=== PATIENT | male | born 1975 | race Caucasian/White ===

== ENCOUNTER 2016-09-21 21:22 | Emergency (ER) | payer OTHER ==
[~2016-09-21] VITALS: Ht 188 cm; Wt 115.6 kg
[~2016-09-21 21:22] MED LIST: ADDE20XR PO; ALPR.25 PO; OXYC1SOL5 PO
[2016-09-21 21:29] VITALS: BP 157/113; PULSE 72; RESP 18; TEMP 98.7; O2SAT 97
[2016-09-21] MEDS ORDERED: SODIUM CHLORIDE 0.9% FLUSH 5 ML FLUSH IVF PRN (21:45)
[2016-09-21] MEDS ORDERED: ASPIRIN 325 MG TAB PO ONE (21:45)
--- NOTE | 2016-09-21 21:49 | PD ---
HPI Chief Complaint: Chest Pain Time Seen by Provider: 21:33 Travel History International Travel<30 days: No Contact w/Intl Traveler<30days: No Traveled to known affect area: No History of Present Illness HPI 40yo M with PMH of anxiety presents to the ED with chest pain for 2 days. Pain is midsternal, and started more epigastric. +SOB. Denies any fever, cough, n/v , abdominal pain, focal weakness or numbness. Pt went to his PMD today and given ranitidine and states it didnt help. Former smoker. No other risk factors. PFSH Past Medical History Cancer: No Cardiovascular Problems: No Diminished Hearing: No Diverticulitis: Yes Endocrine: No Genitourinary: No Immune Disorder: No Musculoskeletal: No Neurologic: No Psychiatric: No Reproductive: No Respiratory: No Past Surgical History Abdominal Surgery: Yes (FISTULA REPAIR) AICD: No Arteriovenous Shunt: No Cardiac Surgery: No Ear Surgery: No Endocrine Surgery: No Eye Surgery: No Genitourinary Surgery: No Gynecologic Surgery: No Insulin Pump: No Joint Replacement: No Oral Surgery: Yes (WISDOM TEETH) Pacemaker: No Thoracic Surgery: No Other Surgery: Yes (FISTULA REPAIR, WISDOM TEETH) Social History Alcohol Use: Yes (RARELY) Tobacco Use: Yes (OCC) Substance Use: Yes (MARIJUANA) Allergies-Medications (Allergen,Severity, Reaction): Coded Allergies: No Known Allergies (Unverified , 09/21/16) Reported Meds & Prescriptions Reported Meds & Active Scripts Active Reported Oxycodone (Oxycodone HCl) 5 Mg Cap 5 Mg PO Q6H PRN Xanax (Alprazolam) 0.5 Mg Tab 0.5 Mg PO Q12HR PRN Adderall Xr 24 HR (Amphetamine/Dextroamphetamine) 20 Mg Cap 20 Mg PO DAILY Once daily in the morning. Review of Systems Except as stated in HPI: all other systems reviewed are Neg Physical Exam Narrative GENERAL: 40yo M not in distress. SKIN: Warm and dry. HEAD: Atraumatic. Normocephalic. EYES: Pupils equal and round. No scleral icterus. No injection or drainage. ENT: No nasal bleeding or discharge. Mucous membranes pink and moist. NECK: Trachea midline. No JVD. CARDIOVASCULAR: Regular rate and rhythm. No murmur appreciated. RESPIRATORY: No accessory muscle use. Clear to auscultation. Breath sounds equal bilaterally. GASTROINTESTINAL: Abdomen soft, non-tender, nondistended. No rebound tenderness or guarding. MUSCULOSKELETAL: +TTP xyphoid process. No obvious deformities. No clubbing. No cyanosis. No edema. NEUROLOGICAL: Awake and alert. No obvious cranial nerve deficits. Motor grossly within normal limits. Normal speech. PSYCHIATRIC: Appropriate mood and affect; insight and judgment normal. Data Data Last Documented VS Vital Signs Date Time Temp Pulse Resp B/P Pulse Ox O2 Delivery O2 Flow Rate FiO2 09/21/16 22:06 65 18 149/86 98 Room Air 148/90 09/21/16 21:29 98.7 Orders Electrocardiogram (09/21/16 21:43) Basic Metabolic Panel (Bmp) (09/21/16 21:43) Ckmb (Isoenzyme) Profile (09/21/16 21:43) Complete Blood Count With Diff (09/21/16 21:43) Magnesium (Mg) (09/21/16 21:43) Prothrombin Time / Inr (Pt) (09/21/16 21:43) Act Partial Throm Time (Ptt) (09/21/16 21:43) Troponin I (09/21/16 21:43) Chest, Single Ap (09/21/16 21:43) Ecg Monitoring (09/21/16 21:43) Bilateral Bp Monitoring (09/21/16 21:43) Iv Access Insert/Monitor (09/21/16 21:43) Oximetry (09/21/16 21:43) Oxygen Administration (09/21/16 21:43) Sodium Chloride 0.9% Flush (Ns Flush) (09/21/16 21:45) Aspirin (Aspirin) (09/21/16 21:45) Labs Laboratory Tests Test 09/21/16 21:50 White Blood Count 11.2 TH/MM3 Red Blood Count 5.44 MIL/MM3 Hemoglobin 15.6 GM/DL Hematocrit 45.3 % Mean Corpuscular Volume 83.4 FL Mean Corpuscular Hemoglobin 28.7 PG Mean Corpuscular Hemoglobin 34.4 % Concent Red Cell Distribution Width 12.9 % Platelet Count 298 TH/MM3 Mean Platelet Volume 7.3 FL Neutrophils (%) (Auto) 60.1 % Lymphocytes (%) (Auto) 31.5 % Monocytes (%) (Auto) 6.2 % Eosinophils (%) (Auto) 1.5 % Basophils (%) (Auto) 0.7 % Neutrophils # (Auto) 6.7 TH/MM3 Lymphocytes # (Auto) 3.5 TH/MM3 Monocytes # (Auto) 0.7 TH/MM3 Eosinophils # (Auto) 0.2 TH/MM3 Basophils # (Auto) 0.1 TH/MM3 CBC Comment DIFF FINAL Differential Comment Prothrombin Time 9.9 SEC Prothromb Time International 0.9 RATIO Ratio Activated Partial 26.6 SEC Thromboplast Time Sodium Level 138 MEQ/L Potassium Level 3.7 MEQ/L Chloride Level 104 MEQ/L Carbon Dioxide Level 23.8 MEQ/L Anion Gap 10 MEQ/L Blood Urea Nitrogen 10 MG/DL Creatinine 0.88 MG/DL Estimat Glomerular Filtration 96 ML/MIN Rate Random Glucose 116 MG/DL Calcium Level 8.6 MG/DL Magnesium Level 2.1 MG/DL Total Creatine Kinase 60 U/L Troponin I LESS THAN 0.02 NG/ML MDM Medical Decision Making Medical Screen Exam Complete: Yes Emergency Medical Condition: Yes Interpretation(s) EKG: NSR 71bpm. Normal axis. No ST segment elevation or depression. Q wave III. Differential Diagnosis Atypical chest pain likely musculoskeletal vs. costochondritis vs. PNA vs. anxiety Narrative Course 40yo M with atypical chest pain. Labs reviewed, mild leukocytosis at 11.2. Troponin negative. CXR showed no acute cardiopulmonary process. Pt given aspirin 325mg PO without relieve of chest pain. There is point tenderness in xyphoid process. Seems very musculoskeletal. Will given toradol 30mg IV and reevaluate. Pt has no risk factor for CAD except for former cig smoker. Return precautions given. VS stable. Diagnosis Primary Impression: Atypical chest pain Patient Instructions: General Instructions Departure Forms: Tests/Procedures Additional Instructions: Please follow up with your PMD in 3-7 days. Return to the ED if your symptoms worsen. Med/Other Pt SpecificInfo: Prescription(s) given Scripts Ibuprofen 600 Mg [id number] Mg PO Q8HR PRN (PAIN) #20 TAB Ref 0 Prov:Judie Car 09/21/16 Disposition: 01 DISCHARGE HOME Condition: Stable Carmenza Carjere BARRON Sep 21, 2016 21:49
[2016-09-21 21:56] VITALS: PULSE 65; RESP 18; O2SAT 98
[2016-09-21 21:59] LABS: AUTOMATED NEUTROPHIL # 6.7 TH/MM3 (1.8-7.7); BASOPHIL # 0.1 TH/MM3 (0-0.2); BASOPHIL % 0.7 % (0.0-2.0); EOSINOPHIL # 0.2 TH/MM3 (0-0.4); EOSINOPHIL % 1.5 % (0.0-4.0); HEMATOCRIT 45.3 % (39.0-51.0); HEMO FLAGS DIFF FINAL; LYMPH % 31.5 % (9.0-44.0); LYMPHOCYTE # 3.5 TH/MM3 (1.0-4.8); MEAN CELL VOLUME 83.4 FL (80.0-100.0); MEAN CORPUSCULAR HEMOGLOBIN 28.7 PG (27.0-34.0); MEAN CORPUSCULAR HGB CONC 34.4 % (32.0-36.0); MONO % 6.2 % (0.0-8.0); NEUT % 60.1 % (16.0-70.0); PLATELET COUNT 298 TH/MM3 (150-450); RED BLOOD COUNT 5.44 MIL/MM3 (4.50-5.90); RED CELL DISTRIBUTION WIDTH 12.9 % (11.6-17.2); WHITE BLOOD COUNT 11.2 TH/MM3 (4.0-11.0)
[2016-09-21 22:06] VITALS: BP_SYST 148; BP_SYST 149; BP_DIAS 86; BP_DIAS 90; PULSE 65; RESP 18; O2SAT 98
[2016-09-21 22:06] LABS: CHLORIDE 104 MEQ/L (98-107); POTASSIUM 3.7 MEQ/L (3.5-5.1); SODIUM (NA) 138 MEQ/L (136-145)
[2016-09-21 22:09] LABS: ANION GAP 10 MEQ/L (5-15); BICARBONATE 23.8 MEQ/L (21.0-32.0); BLOOD UREA NITROGEN 10 MG/DL (7-18); MAGNESIUM 2.1 MG/DL (1.5-2.5)
[2016-09-21] MEDS ORDERED: ADDE20XR PO (22:10)
[2016-09-21] MEDS ORDERED: OXYC1CAP PO (22:10)
[2016-09-21] MEDS ORDERED: ALPR.5 PO (22:10)
[2016-09-21 22:12] LABS: APTT (PATIENT) 26.6 SEC (24.3-30.1); GLOMERULAR FILTRATION RATE 96 ML/MIN (>89); INTERNATIONAL NORMALIZED RATIO 0.9 RATIO; PROTHROMBIN TIME - PATIENT 9.9 SEC (9.8-11.6)
--- NOTE | 2016-09-21 22:13 | RADHPO ---
EXAM DATE/TIME: 09/21/2016 21:56 [facility] COMPARISON: CHEST PA & LAT, May 04, 2016, 13:07. INDICATIONS : Chest pain. MEDICAL HISTORY : Diverticulitis. ADHD SURGICAL HISTORY : Fistula repair ENCOUNTER: Initial ACUITY: 1 day PAIN SCORE: 8/10 LOCATION: Bilateral chest FINDINGS: The lungs are clear without infiltrate, nodule, or mass. There is no appreciable pleural effusion fo r technique. Heart and mediastinum are unremarkable. CONCLUSION: No acute cardiopulmonary disease. Heriberto Prasad MD on September 21, 2016 at 22:09 Board Certified Radiologist. This report was verified electronically.
[2016-09-21 22:28] LABS: CREATINE KINASE 60 U/L (39-308)
[2016-09-21] MEDS ORDERED: IBUP-232 PO (23:08)
[2016-09-21] MEDS ORDERED: KETOROLAC TROMETHAMINE 30 MG/ML (IVP) VIAL IV PUSH ONE (23:15)
[2016-09-21 23:32] VITALS: BP 147/90; PULSE 61; RESP 18; O2SAT 97
[2016-09-22 00:32] VITALS: BP 118/78; PULSE 62; RESP 18; O2SAT 96
[2016-09-22] MEDS ORDERED: TRAM50TA PO (17:27)
--- NOTE | 2016-09-23 13:22 | EKG ---
Date Performed: 09/21/2016 Time Performed: 21:37:56 PTAGE: 40 years EKG: Sinus rhythm . Since previous tracing, no significant change noted Normal ECG PREVIOUS TRACING : 05/04/2016 12.23 DOCTOR: Meli Duncan Interpretating Date/Time 09/23/2016 13:20:57
== END 2016-09-22 00:29 | disposition home or self-care (01) ==
LOC: PHED 21:22
DX: R07.89 Other chest pain (principal); R06.02 Shortness of breath; F12.90 Cannabis use, unspecified, uncomplicated; Z72.0 Tobacco use
CPT/HCPCS: 71010; 80048; 82550; 83735; 84484; 85025; 85610; 85730; 93005; 96374; 99285; J1885

== ENCOUNTER 2016-09-22 16:43 | Emergency (ER) | payer OTHER ==
[~2016-09-22] VITALS: Ht 188 cm; Wt 115.5 kg
[~2016-09-22 16:43] MED LIST changes: -ALPR.25 PO; +ALPR.5 PO; +IBUP-232 PO; +OXYC1CAP PO; -OXYC1SOL5 PO
[2016-09-22 16:50] VITALS: BP 150/97; PULSE 84; RESP 16; TEMP 97.1; O2SAT 98
--- NOTE | 2016-09-22 17:19 | PD ---
HPI Chief Complaint: Chest Pain Time Seen by Provider: 16:56 Travel History International Travel<30 days: No Contact w/Intl Traveler<30days: No Traveled to known affect area: No History of Present Illness HPI This patient complains of chest pain. Location is low center sternum. Also has pain in the right low rib cage. He was seen here yesterday for chest pain. Was diagnosed with chest wall pain after negative workup. Patient has a lot of anxiety problems and came back for reevaluation. Symptoms severity is moderate. PFSH Past Medical History ADD: Yes Cancer: No Cardiovascular Problems: No Diminished Hearing: No Diverticulitis: Yes Endocrine: No Gastrointestinal Disorders: Yes (DIVERTICULITIS) Genitourinary: No Immune Disorder: No Medical other: Yes (adhd) Musculoskeletal: No Neurologic: No Psychiatric: No Reproductive: No Respiratory: No Immunizations Current: Yes Influenza Vaccination: Yes Past Surgical History Abdominal Surgery: Yes (FISTULA REPAIR) AICD: No Arteriovenous Shunt: No Cardiac Surgery: No Ear Surgery: No Endocrine Surgery: No Eye Surgery: No Genitourinary Surgery: No Gynecologic Surgery: No Insulin Pump: No Joint Replacement: No Oral Surgery: Yes (WISDOM TEETH) Pacemaker: No Thoracic Surgery: No Other Surgery: Yes (FISTULA REPAIR, WISDOM TEETH) Social History Alcohol Use: Yes (RARELY) Tobacco Use: Yes (QUIT 05/04) Substance Use: Yes (MARIJUANA) Allergies-Medications (Allergen,Severity, Reaction): Coded Allergies: No Known Allergies (Unverified , 09/22/16) Reported Meds & Prescriptions Reported Meds & Active Scripts Active Reported Oxycodone (Oxycodone HCl) 5 Mg Cap 5 Mg PO Q6H PRN Xanax (Alprazolam) 0.5 Mg Tab 0.5 Mg PO Q12HR PRN Adderall Xr 24 HR (Amphetamine/Dextroamphetamine) 20 Mg Cap 20 Mg PO DAILY Once daily in the morning. Review of Systems General / Constitutional: No: Fever HENT: No: Headaches Cardiovascular: Positive: Chest Pain or Discomfort Respiratory: No: Cough Physical Exam Narrative GENERAL: Well-nourished, well-developed patient in no apparent distress. SKIN: Warm and dry. HEAD: Atraumatic. Normocephalic. EYES: Pupils equal and round. No scleral icterus. No injection or drainage. ENT: No nasal bleeding or discharge. Mucous membranes pink and moist. NECK: Trachea midline. No JVD. CARDIOVASCULAR: Regular rate and rhythm. No murmur appreciated. RESPIRATORY: No accessory muscle use. Clear to auscultation. Breath sounds equal bilaterally. GASTROINTESTINAL: Abdomen soft, non-tender, nondistended. Hepatic and splenic margins not palpable. MUSCULOSKELETAL: No obvious deformities. No clubbing. No cyanosis. No edema. He has readily reproducible clearcut musculoskeletal chest wall pain. The lower half of his sternum is very tender as is his right costal margin. There is no bruising or instability NEUROLOGICAL: Awake and alert. No obvious cranial nerve deficits. Motor grossly within normal limits. Normal speech. PSYCHIATRIC: Appropriate mood and affect; insight and judgment normal. Data Data Last Documented VS Vital Signs Date Time Temp Pulse Resp B/P Pulse Ox O2 Delivery O2 Flow Rate FiO2 09/22/16 16:50 97.1 84 16 150/97 98 MDM Medical Decision Making Medical Screen Exam Complete: Yes Emergency Medical Condition: Yes Medical Record Reviewed: Yes Differential Diagnosis Differential diagnosis includes CA, angina, pericarditis, pleurisy, GERD, anxiety. Narrative Course I have reviewed the patient's electronic medical record. I reviewed yesterday' s workup which was negative I did an EKG now which is normal The doctor yesterday felt that he had musculoskeletal chest wall pain. After examination I concur with that diagnosis. I don't feel he requires further workup or inpatient admission. He should call his primary physician for follow-up. I wrote him some tramadol for symptom relief Diagnosis Primary Impression: Musculoskeletal chest pain Additional Instructions: The patient was advised to follow up with their physician and return if they worsen. The patient was warned about potential sedation for the medications they will receive on prescription. Med/Other Pt SpecificInfo: Other Disposition: DISCHARGE HOME Condition: Stable Lennox Cardoso MD Sep 22, 2016 17:19
[2016-09-22] MEDS ORDERED: TRAM50TA PO (17:27)
[2016-09-22] MEDS ORDERED: KETOROLAC TROMETHAMINE 60 MG/2 ML (IM) VIAL IM ONE (18:00)
[2016-09-22 18:12] VITALS: BP 151/86
--- NOTE | 2016-09-23 13:22 | EKG ---
Date Performed: 09/22/2016 Time Performed: 16:59:44 PTAGE: 40 years EKG: Sinus rhythm Since previous tracing, no significant change noted Normal ECG PREVIOUS TRACING : 09/21/2016 21.37 DOCTOR: Meli Duncan Interpretating Date/Time 09/23/2016 13:20:40
== END 2016-09-22 18:13 | disposition home or self-care (01) ==
LOC: PHED 16:43
DX: R07.89 Other chest pain (principal); Z87.891 Personal history of nicotine dependence
CPT/HCPCS: 93005; 96372; 99283; J1885

== ENCOUNTER 2016-09-28 07:05 | Inpatient (IN) | payer OTHER ==
[~2016-09-28] VITALS: Ht 182.9 cm; Wt 110.0 kg
[~2016-09-28 07:05] MED LIST changes: -IBUP-232 PO; +TRAM50TA PO
[2016-09-28 07:10] VITALS: BP 123/86; PULSE 134; RESP 17; TEMP 98.1; O2SAT 95
[2016-09-28] MEDS ORDERED: SODIUM CHLORIDE 0.9% FLUSH 5 ML FLUSH IVF PRN (07:30)
[2016-09-28] MEDS ORDERED: ASPIRIN 81 MG CHEW TAB PO ONE (07:30)
--- NOTE | 2016-09-28 07:40 | PD ---
HPI Chief Complaint: Chest Pain Time Seen by Provider: 07:20 Travel History International Travel<30 days: No Contact w/Intl Traveler<30days: No Traveled to known affect area: No History of Present Illness HPI 40-year-old male here for evaluation of chest pain. This is a patient's third visit this week for similar symptoms. He states he has been having episodes of chest tightness associated with shortness of breath and intense shaking. When I entered the room the patient was crying. He has a history of anxiety and states he tried taking Xanax when he had an episode this morning at around 2:00 AM. He denies history of cardiac disease. No known family history of cardiac disease. He is a former smoker. No paresthesias or motor deficits. No history of DVT or PE. She denies suicidal or homicidal ideation. He admits that he believes there is a psychiatric component to his symptoms. 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 PFSH Past Medical History ADD: Yes ADHD: Yes Cancer: No Cardiovascular Problems: No Diminished Hearing: No Diverticulitis: Yes Endocrine: No Gastrointestinal Disorders: Yes (DIVERTICULITIS) Genitourinary: No Immune Disorder: No Musculoskeletal: No Neurologic: No Psychiatric: No Reproductive: No Respiratory: No Immunizations Current: Yes Influenza Vaccination: Yes Past Surgical History Abdominal Surgery: Yes (FISTULA REPAIR) AICD: No Arteriovenous Shunt: No Cardiac Surgery: No Ear Surgery: No Endocrine Surgery: No Eye Surgery: No Genitourinary Surgery: No Gynecologic Surgery: No Insulin Pump: No Joint Replacement: No Oral Surgery: Yes (WISDOM TEETH) Pacemaker: No Thoracic Surgery: No Other Surgery: Yes (FISTULA REPAIR, WISDOM TEETH) Social History Alcohol Use: Yes (RARELY) Tobacco Use: No (QUIT 05/04) Substance Use: No (MARIJUANA) Allergies-Medications (Allergen,Severity, Reaction): Coded Allergies: No Known Allergies (Unverified , 09/28/16) Reported Meds & Prescriptions Reported Meds & Active Scripts Active Tramadol (Tramadol HCl) 50 Mg Tab 50 Mg PO Q6H PRN Reported Xanax (Alprazolam) 0.5 Mg Tab 0.5 Mg PO Q12HR PRN Adderall Xr 24 HR (Amphetamine/Dextroamphetamine) 20 Mg Cap 20 Mg PO DAILY Once daily in the morning. Review of Systems Except as stated in HPI: all other systems reviewed are Neg Physical Exam Narrative GENERAL: Well-developed, well-nourished, tearful, no acute distress. SKIN: Warm and dry. No rash. HEAD: Atraumatic. Normocephalic. EYES: Pupils equal and round. No scleral icterus. No injection or drainage. ENT: No nasal bleeding or discharge. Mucous membranes pink and moist. NECK: Trachea midline. No JVD. CARDIOVASCULAR: Regular rate and rhythm. Distal pulses brisk and equal bilaterally. RESPIRATORY: No accessory muscle use. Clear to auscultation. Breath sounds equal bilaterally. GASTROINTESTINAL: Abdomen soft, non-tender, nondistended. MUSCULOSKELETAL: No obvious deformities. No clubbing. No cyanosis. No edema. NEUROLOGICAL: Awake and alert. No obvious cranial nerve deficits. Motor grossly within normal limits. Normal speech. PSYCHIATRIC: Tearful. Depressed mood. Data Data Last Documented VS Vital Signs Date Time Temp Pulse Resp B/P Pulse Ox O2 Delivery O2 Flow Rate FiO2 09/28/16 08:32 106 18 121/73 99 Room Air 09/28/16 07:10 98.1 Orders Electrocardiogram (09/28/16 ) Basic Metabolic Panel (Bmp) (09/28/16 07:29) Ckmb (Isoenzyme) Profile (09/28/16 07:29) Complete Blood Count With Diff (09/28/16 07:29) Prothrombin Time / Inr (Pt) (09/28/16 07:29) Act Partial Throm Time (Ptt) (09/28/16 07:29) Troponin I (09/28/16 07:29) Chest, Single Ap (09/28/16 07:29) Ecg Monitoring (09/28/16 07:29) Iv Access Insert/Monitor (09/28/16 07:29) Oximetry (09/28/16 07:29) Aspirin Chew (Aspirin Chew) (09/28/16 07:30) Sodium Chloride 0.9% Flush (Ns Flush) (09/28/16 07:30) Urinalysis - C+S If Indicated (09/28/16 08:14) Influenzae A/B Antigen (09/28/16 08:14) Sodium Chlor 0.9% 1000 Ml Inj (Ns 1000 M (09/28/16 08:15) D-Dimer (09/28/16 08:14) Ct Pulmonary Angiogram (09/28/16 09:09) Ct Abd/Pel W Iv Contrast(Rout) (09/28/16 09:09) Hepatic Functional Panel (09/28/16 09:11) Morphine Inj (Morphine Inj) (09/28/16 10:30) Labs Laboratory Tests Test 09/28/16 09/28/16 07:40 08:30 White Blood Count 24.4 TH/MM3 Red Blood Count 5.13 MIL/MM3 Hemoglobin 15.0 GM/DL Hematocrit 42.5 % Mean Corpuscular Volume 82.8 FL Mean Corpuscular Hemoglobin 29.3 PG Mean Corpuscular Hemoglobin 35.3 % Concent Red Cell Distribution Width 13.7 % Platelet Count 254 TH/MM3 Mean Platelet Volume 8.1 FL Neutrophils (%) (Auto) 90.3 % Lymphocytes (%) (Auto) 3.1 % Monocytes (%) (Auto) 6.1 % Eosinophils (%) (Auto) 0.3 % Basophils (%) (Auto) 0.2 % Neutrophils # (Auto) 22.0 TH/MM3 Lymphocytes # (Auto) 0.8 TH/MM3 Monocytes # (Auto) 1.5 TH/MM3 Eosinophils # (Auto) 0.1 TH/MM3 Basophils # (Auto) 0.1 TH/MM3 CBC Comment DIFF FINAL Differential Comment Prothrombin Time 11.1 SEC Prothromb Time International 1.0 RATIO Ratio Activated Partial 27.8 SEC Thromboplast Time D-Dimer Quantitative (PE/DVT) 4.41 MG/L FEU Sodium Level 136 MEQ/L Potassium Level 3.4 MEQ/L Chloride Level 101 MEQ/L Carbon Dioxide Level 20.9 MEQ/L Anion Gap 14 MEQ/L Blood Urea Nitrogen 14 MG/DL Creatinine 1.08 MG/DL Estimat Glomerular Filtration 76 ML/MIN Rate Random Glucose 100 MG/DL Calcium Level 9.2 MG/DL Total Bilirubin 2.4 MG/DL Direct Bilirubin 0.6 MG/DL Indirect Bilirubin 1.8 MG/DL Aspartate Amino Transf 25 U/L (AST/SGOT) Alanine Aminotransferase 38 U/L (ALT/SGPT) Alkaline Phosphatase 172 U/L Total Creatine Kinase 43 U/L Troponin I LESS THAN 0.02 NG/ML Total Protein 7.9 GM/DL Albumin 3.6 GM/DL Urine Color JOCELYN Urine Turbidity CLEAR Urine pH 5.5 Urine Specific [place] 1.017 Urine Protein TRACE mg/dL Urine Glucose (UA) NEG mg/dL Urine Ketones 10 mg/dL Urine Occult Blood NEG Urine Nitrite NEG Urine Bilirubin NEG Urine Urobilinogen 2.0 MG/DL Urine Leukocyte Esterase NEG Urine RBC 1 /hpf Urine WBC 2 /hpf Urine Squamous Epithelial <1 /hpf Cells Urine Mucus FEW /lpf Microscopic Urinalysis Comment CULT NOT INDICATED MDM Medical Decision Making Medical Screen Exam Complete: Yes Emergency Medical Condition: Yes Medical Record Reviewed: Yes Interpretation(s) EKG: Sinus, rate 104, normal axis, normal intervals, no acute ischemic abnormality. Differential Diagnosis ACS, pneumothorax, pericarditis, PE, pneumonia, depression, anxiety, Narrative Course Initial vital signs show heart rate 134, blood pressure 123/86, pulse ox 95% on room air, oral temp of 98.1F. CBC is remarkable for WBC 24.4 with 90% neutrophils. BMP is unremarkable. Cardiac enzymes are negative. D-dimer is 4.41. Patient was made aware of all findings. When asked about abdominal pain, the patient has been noting some right upper quadrant abdominal discomfort. There is some tenderness over the right upper quadrant. CT pulmonary angiogram ordered because of elevated d-dimer. CT abdomen pelvis was ordered to rule out intra-abdominal infection. CT pulmonary angiogram: CONCLUSION: 1. No evidence of pulmonary embolism. 2. Distended thick-walled gallbladder raising the possibility of cholecystitis. Clinical correlation is recommended. CT abdomen pelvis: CONCLUSION: 1. Findings of prior bowel surgery with surgical clips at the rectosigmoid junction suggesting prior colonic resection. 2. Mild diverticular disease of the descending and sigmoid colon without diverticulitis. 3. Gallbladder is distended with suggestion of some dural thickening along the medial wall. If patient has right upper quadrant abdominal pain, ultrasound or HIDA scan may be useful for further characterization. 4. The appendix is identified and is radiographically normal. 5. A 1-1.5 cm benign-appearing cyst or hemangioma in the left hepatic lobe adjacent to the gallbladder. Case discussed with on-call general surgeon Dr. Lombardo. The patient will be started on Zosyn and will be admitted to his service for acute cholecystitis. Patient was made aware of all findings and plan for admission. Diagnosis Primary Impression: Acute cholecystitis Admitting Information Admitting Physician Requests: Admit Donald Wills MD Sep 28, 2016 07:40
[2016-09-28 08:11] LABS: BASOPHIL # 0.1 TH/MM3 (0-0.2); BASOPHIL % 0.2 % (0.0-2.0); EOSINOPHIL # 0.1 TH/MM3 (0-0.4); EOSINOPHIL % 0.3 % (0.0-4.0); HEMATOCRIT 42.5 % (39.0-51.0); HEMO FLAGS DIFF FINAL; LYMPH % 3.1 % (9.0-44.0); LYMPHOCYTE # 0.8 TH/MM3 (1.0-4.8); MEAN CELL VOLUME 82.8 FL (80.0-100.0); MEAN CORPUSCULAR HEMOGLOBIN 29.3 PG (27.0-34.0); MEAN CORPUSCULAR HGB CONC 35.3 % (32.0-36.0); MONO % 6.1 % (0.0-8.0); NEUT % 90.3 % (16.0-70.0); PLATELET COUNT 254 TH/MM3 (150-450); RED BLOOD COUNT 5.13 MIL/MM3 (4.50-5.90); RED CELL DISTRIBUTION WIDTH 13.7 % (11.6-17.2); WHITE BLOOD COUNT 24.4 TH/MM3 (4.0-11.0)
[2016-09-28] MEDS ORDERED: SODIUM CHLOR 0.9% 1000 ML INJ 1,000 ML IV ONE (08:15)
[2016-09-28 08:18] LABS: APTT (PATIENT) 27.8 SEC (24.3-30.1); PROTHROMBIN TIME - PATIENT 11.1 SEC (9.8-11.6)
[2016-09-28 08:32] VITALS: BP 121/73; PULSE 106; RESP 18; O2SAT 99
[2016-09-28 08:36] LABS: ANION GAP 14 MEQ/L (5-15); BICARBONATE 20.9 MEQ/L (21.0-32.0); BLOOD UREA NITROGEN 14 MG/DL (7-18); CHLORIDE 101 MEQ/L (98-107); GLOMERULAR FILTRATION RATE 76 ML/MIN (>89); POTASSIUM 3.4 MEQ/L (3.5-5.1); SODIUM (NA) 136 MEQ/L (136-145)
[2016-09-28 08:47] LABS: CREATINE KINASE 43 U/L (39-308)
[2016-09-28 08:57] LABS: BLOOD, URINE NEG (NEG); COMMENT (UR) CULT NOT INDICATED; CULTURE IF INDICATED CULT NOT INDICATED; GLUCOSE,URINE NEG (NEG); KETONE, URINE 10 mg/dL (NEG); MUCUS URINE FEW /lpf (OCC); NITRITE,URINE NEG (NEG); PH, URINE 5.5 (5.0-8.5); SQUAMOUS EPITHELIAL CELL URINE <1 /hpf (0-5)
[2016-09-28 08:59] LABS: URINE COLOR AMBER (YELLW/STRAW)
[2016-09-28] MEDS ORDERED: IOHEXOL 350 MG/ML 10 ML VIAL (for RAD DIAG) IV ONE (09:22)
--- NOTE | 2016-09-28 09:49 | RADRPT ---
EXAM DATE/TIME: 09/28/2016 07:44 [facility] COMPARISON: CHEST SINGLE AP, September 21, 2016, 21:56. INDICATIONS : Chest pain, short of breath, pain RUQ, shaking , former smoker MEDICAL HISTORY : Diverticulitis. ADHD SURGICAL HISTORY : fistula repair ENCOUNTER: Initial ACUITY: 1 week PAIN SCORE: 8/10 LOCATION: Bilateral chest FINDINGS: A single view of the chest demonstrates the lungs to be symmetrically aerated without evidence of mas s, infiltrate or effusion. The cardiomediastinal contours are unremarkable. Osseous structures are intact. CONCLUSION: No acute disease. Dwight Avila MD on September 28, 2016 at 9:48 Board Certified Radiologist. This report was verified electronically.
--- NOTE | 2016-09-28 09:58 | RADRPT ---
EXAM DATE/TIME: 09/28/2016 09:22 [facility] COMPARISON: CT ABDOMEN & PELVIS W CONTRAST, September 28, 2016, 9:22. INDICATIONS : Mid-sternal pain , evaluate for pulmonary emoblism. IV CONTRAST: 95 cc Omnipaque 350 (iohexol) IV ; Cumulative dose for multiple exams. RADIATION DOSE: 16.42 CTDIvol (mGy) MEDICAL HISTORY : Diverticulitis. SURGICAL HISTORY : Colon Fistula repair ENCOUNTER: Initial ACUITY: 3 days PAIN SCALE: 3/10 LOCATION: chest TECHNIQUE: Volumetric scanning of the chest was performed using a pulmonary embolism protocol MIP images were re constructed. Using automated exposure control and adjustment of the mA and/or kV according to patien t size, radiation dose was kept as low as reasonably achievable to obtain optimal diagnostic quality images. FINDINGS: PULMONARY ARTERIES: No filling defects are seen in the pulmonary arteries through the segmental level. LUNGS: There is no consolidation or pneumothorax . No concerning pulmonary nodule is visualized. PLEURAE: There is no pleural thickening or pleural effusion. MEDIASTINUM: There is good visualization of the great vessels of the middle mediastinum. No evidence of mediastin al or hilar adenopathy/mass. MUSCULOSKELETAL: Within normal limits for patient age. MISCELLANEOUS: The gallbladder is distended and its wall is thickened raising the possibility of chronic cholecystit is. Clinical correlation is recommended. CONCLUSION: 1. No evidence of pulmonary embolism. 2. Distended thick-walled gallbladder raising the possibility of cholecystitis. Clinical correlation is recommended. Dwight Avila MD on September 28, 2016 at 9:55 Board Certified Radiologist. This report was verified electronically.
[2016-09-28 10:05] LABS: INDIRECT BILIRUBIN 1.8 MG/DL (0.0-0.8); TOTAL BILIRUBIN ADULT 2.4 MG/DL (0.2-1.0)
--- NOTE | 2016-09-28 10:05 | RADRPT ---
EXAM DATE/TIME: 09/28/2016 09:22 [facility] COMPARISON: CT ABDOMEN & PELVIS W CONTRAST, May 14, 2016, 19:11. INDICATIONS : Generalized abdominal pain. IV CONTRAST: 95 cc Omnipaque 350 (iohexol) IV ; Cumulative dose for multiple exams. ORAL CONTRAST: No oral contrast ingested. RADIATION DOSE: 18.02 CTDIvol (mGy) MEDICAL HISTORY : Diverticulitis. SURGICAL HISTORY : Fistula repair ENCOUNTER: Initial ACUITY: 1 day PAIN SCALE: 4/10 LOCATION: Bilateral abdomen TECHNIQUE: Volumetric scanning of the abdomen and pelvis was performed. Using automated exposure control and ad justment of the mA and/or kV according to patient size, radiation dose was kept as low as reasonably achievable to obtain optimal diagnostic quality images. FINDINGS: LOWER LUNGS: The visualized lower lungs are clear. LIVER: Isolated 1.5 cm low density lesion in the left hepatic lobe adjacent to the gallbladder is overtly be nign and may represent a small cyst or hemangioma. There is no dilation of the biliary tree. No mary cified gallstones. However, the gallbladder is distended and there is suggestion of some dural thicke veena, particularly along the medial wall. No pericholecystic inflammation identified, however. SPLEEN: Normal size without lesion. PANCREAS: Within normal limits. KIDNEYS: Normal in size and shape. There is no mass, stone or hydronephrosis. ADRENAL GLANDS: Within normal limits. VASCULAR: There is no aortic aneurysm. BOWEL/MESENTERY: Mild diverticular disease in the descending colon. Surgical ervin in the region of rectosigmoid kimo ction are characteristic of prior bowel surgery. Appendix is radiographically normal. ABDOMINAL WALL: Within normal limits. RETROPERITONEUM: There is no lymphadenopathy. BLADDER: No wall thickening or mass. REPRODUCTIVE: Within normal limits. INGUINAL: There is no lymphadenopathy or hernia. MUSCULOSKELETAL: Within normal limits for patient age. CONCLUSION: 1. Findings of prior bowel surgery with surgical clips at the rectosigmoid junction suggesting prior colonic resection. 2. Mild diverticular disease of the descending and sigmoid colon without diverticulitis. 3. Gallbladder is distended with suggestion of some dural thickening along the medial wall. If patien t has right upper quadrant abdominal pain, ultrasound or HIDA scan may be useful for further characte rization. 4. The appendix is identified and is radiographically normal. 5. A 1-1.5 cm benign-appearing cyst or hemangioma in the left hepatic lobe adjacent to the vandanaadde emigdio Sesay MD on September 28, 2016 at 9:54 Board Certified Radiologist. This report was verified electronically.
[2016-09-28] MEDS ORDERED: MORPHINE SULFATE 4 MG/ML INJ IV PUSH ONE (10:30)
[2016-09-28] MEDS ORDERED: PIPERACIL-TAZO 3.375 GM PREMIX 50 ML IV ONE (10:30)
[2016-09-28] MEDS ORDERED: ALPRAZolam 0.5 MG TAB PO PRN (13:00)
[2016-09-28] MEDS ORDERED: ONDANSETRON HCL 4 MG/2 ML VIAL IV PRN (13:00)
[2016-09-28] MEDS ORDERED: ACETAMINOPHEN/HYDROcodone 325 MG/5 MG TAB PO PRN (13:00)
[2016-09-28] MEDS ORDERED: SODIUM CHLORIDE 0.9% FLUSH 5 ML FLUSH IV PRN (13:00)
[2016-09-28 13:04] VITALS: BP 144/76; PULSE 85; RESP 16; O2SAT 98
--- NOTE | 2016-09-28 13:08 | RADRPT ---
EXAM DATE/TIME: 09/28/2016 11:19 [facility] COMPARISON: CT ABDOMEN & PELVIS W CONTRAST, September 28, 2016, 9:22. INDICATIONS: Right upper quadrant pain. MEDICAL HISTORY: Diverticulitis. SURGICAL HISTORY: Bowel surgery. ENCOUNTER: Initial ACUITY: 1 day PAIN SCORE: 2/10 LOCATION: Right upper quadrant MEASUREMENTS: LIVER: 14.0 cm length COMMON DUCT: 7 mm RIGHT KIDNEY: 12.4 x 7.0 x 6.2 cm FINDINGS: There is evidence of a thick wall gallbladder with layering debris and minimal pericholecystic fluid suggesting possible acute cholecystitis. Clinical correlation is recommended. A hepatobiliary scan may be helpful to confirm cystic duct obstruction if clinically indicated. The liver is normal in si ze. There is a tiny focal echogenic lesion within the left lobe measuring 1.2 x 1.1 x 1.3 cm consist ent with possible hemangioma. No biliary ductal dilatation is noted. The pancreas is unremarkable. The right kidney is unremarkable without hydronephrosis or solid mass. CONCLUSION: 1. Thick walled gallbladder with minimal pericholecystic fluid and some debris. The findings suggest acute cholecystitis. Clinical correlation is recommended. A hepatobiliary scan may be helpful to c onfirm cystic duct obstruction if clinically indicated. 2. Tiny echogenic focus within the left lobe of the liver measuring 1.2 x 1.1 x 1.3 cm consistent wi th possible hemangioma. Dwight Avila MD on September 28, 2016 at 12:53 Board Certified Radiologist. This report was verified electronically.
[2016-09-28] MEDS: SODIUM CHLOR 0.9% 1000 ML INJ 1,000 ML IV SCH ×2 (13:38→21:18)
[2016-09-28 14:21] VITALS: BP 120/71; PULSE 90; RESP 20; O2SAT 98
[2016-09-28] MEDS: LEVOFLOXACIN 500 MG PREMIX INJ 100 ML IV SCH (14:21)
[2016-09-28] MEDS: metroNIDAZOLE 500 MG INJ 100 ML IV SCH ×2 (15:33→23:02)
--- NOTE | 2016-09-28 15:54 | HHI.HP ---
[facility] Service General Surgery Primary Care Physician Odin Scanlon M.D. Admission Diagnosis acute cholecystitis Chief Complaint: Substernal chest pain History of Present Illness This is a 40-year-old male who presented with substernal chest pain, right lower chest and upper abdominal pain, and shortness of breath. He has had these symptoms for about 10 days. He did present to the emergency Department couple of times and was thought to have musculoskeletal pain. During this visit he was evaluated and noted to have abdominal pain and on lab work his white blood count is 24,000. He also has elevation of LFTs. CT scan of the abdomen and pelvis was suggestive of possible acute cholecystitis and ultrasound of the gallbladder also appears to be acute cholecystitis. He states he has had nausea and ultimately been able to eat a bland diet. He complains of chills. His urine has been dark but he has not had any yellowing of skin or eyes. He has a history of diverticulitis and underwent robot- assisted sigmoid resection by Dr. Miner in April 2016. Review of Systems Constitutional: COMPLAINS OF: Chills, DENIES: Fever Eyes: DENIES: Eye inflammation, Eye pain Respiratory: COMPLAINS OF: Shortness of breath, DENIES: Cough Cardiovascular: COMPLAINS OF: Chest pain, DENIES: Palpitations Gastrointestinal: COMPLAINS OF: Abdominal pain, Nausea Integumentary: DENIES: Pruritus, Rash Past Family Social History Past Medical History Diverticulitis Anxiety ADD Past Surgical History Robot assisted sigmoid resection Reported Medications Reported Meds & Active Scripts Active Tramadol (Tramadol HCl) 50 Mg Tab 50 Mg PO Q6H PRN Reported Xanax (Alprazolam) 0.5 Mg Tab 0.5 Mg PO Q12HR PRN Adderall Xr 24 HR (Amphetamine/Dextroamphetamine) 20 Mg Cap 20 Mg PO DAILY Once daily in the morning. Allergies: Coded Allergies: No Known Allergies (Unverified , 09/28/16) Active Ordered Medications Current Medications Medications (Trade) Dose Ordered Sig/Nicole Route Start Time Stop Time Status Last Admin (NS 1000 ml Inj) 1,000 ml @ 100 mls/hr Q10H IV 09/28/16 12:54 09/28/16 13:38 (NS Flush) 2 ml UNSCH PRN IV 09/28/16 13:00 IV Flush 2 ml 2 ml BID IV 09/28/16 21:00 Levofloxacin/ Dextrose 100 ml @ 100 mls/hr Q24H IV 09/28/16 14:00 09/28/16 14:21 (Flagyl 500 Mg Inj) 100 ml @ 100 mls/hr Q8H IV 09/28/16 15:00 09/28/16 15:33 ([place] 5-325 Mg) 1 tab Q4H PRN PO 09/28/16 13:00 09/28/16 13:39 (Dilaudid Pf Inj) 1 mg Q3H PRN IV 09/28/16 13:00 (Zofran Inj) 4 mg Q6H PRN IV 09/28/16 13:00 ([place] 5-325 Mg) 2 tab Q4H PRN PO 09/28/16 13:00 (Xanax) 0.5 mg Q12HR PRN PO 09/28/16 13:00 (Adderall Xr) 20 mg DAILY PO 09/29/16 09:00 Family History Noncontributory Social History No tobacco use. Rare alcohol use. Occasional marijuana use. Physical Exam Vital Signs Vital Signs Date Time Temp Pulse Resp B/P Pulse Ox O2 Delivery O2 Flow Rate FiO2 09/28/16 14:21 90 20 120/71 98 Room Air 09/28/16 14:20 20 09/28/16 13:04 85 16 144/76 98 Room Air 09/28/16 08:32 106 18 121/73 99 Room Air 09/28/16 07:10 98.1 134 17 123/86 95 Physical Exam GENERAL: Awake and alert. No acute distress. Cooperative. HEAD: Normocephalic. Atraumatic. EYES: Pupils equal round and reactive to light bilaterally. No scleral icterus. ENT: Moist oral mucosa. CHEST: Lungs clear to auscultation bilaterally with no wheezing or rhonchi. No respiratory distress. CARDIOVASCULAR: Regular rate and rhythm. ABDOMEN: Positive Alexis sign. Moderate tenderness in the right upper quadrant. Mild tenderness in the right lower abdomen. EXTREMITIES: No cyanosis or edema. SKIN: Warm, dry, nonjaundiced. Laboratory Laboratory Tests Test 09/28/16 09/28/16 07:40 08:30 White Blood Count 24.4 Red Blood Count 5.13 Hemoglobin 15.0 Hematocrit 42.5 Mean Corpuscular Volume 82.8 Mean Corpuscular Hemoglobin 29.3 Mean Corpuscular Hemoglobin 35.3 Concent Red Cell Distribution Width 13.7 Platelet Count 254 Mean Platelet Volume 8.1 Neutrophils (%) (Auto) 90.3 Lymphocytes (%) (Auto) 3.1 Monocytes (%) (Auto) 6.1 Eosinophils (%) (Auto) 0.3 Basophils (%) (Auto) 0.2 Neutrophils # (Auto) 22.0 Lymphocytes # (Auto) 0.8 Monocytes # (Auto) 1.5 Eosinophils # (Auto) 0.1 Basophils # (Auto) 0.1 CBC Comment DIFF FINAL Differential Comment Prothrombin Time 11.1 Prothromb Time International 1.0 Ratio Activated Partial 27.8 Thromboplast Time D-Dimer Quantitative (PE/DVT) 4.41 Sodium Level 136 Potassium Level 3.4 Chloride Level 101 Carbon Dioxide Level 20.9 Anion Gap 14 Blood Urea Nitrogen 14 Creatinine 1.08 Estimat Glomerular Filtration 76 Rate Random Glucose 100 Calcium Level 9.2 Total Bilirubin 2.4 Direct Bilirubin 0.6 Indirect Bilirubin 1.8 Aspartate Amino Transf 25 (AST/SGOT) Alanine Aminotransferase 38 (ALT/SGPT) Alkaline Phosphatase 172 Total Creatine Kinase 43 Troponin I LESS THAN 0.02 Total Protein 7.9 Albumin 3.6 Urine Color JOCELYN Urine Turbidity CLEAR Urine pH 5.5 Urine Specific [place] 1.017 Urine Protein TRACE Urine Glucose (UA) NEG Urine Ketones 10 Urine Occult Blood NEG Urine Nitrite NEG Urine Bilirubin NEG Urine Urobilinogen 2.0 Urine Leukocyte Esterase NEG Urine RBC 1 Urine WBC 2 Urine Squamous Epithelial <1 Cells Urine Mucus FEW Microscopic Urinalysis Comment CULT NOT INDICATED Date/Time Procedure Status Source Growth 09/28/16 08:30 Influenza Types A,B Antigen (MUSTAPHA) - Final Complete Nasal Washing NEGATIVE FOR FLU A AND B ANTIGEN.... Result Diagram: 09/28/16 0740 09/28/[address] Angiography 09/28/1609 Signed Impressions: Service Date/Time: Wednesday, September 28, 2016 09:22 - CONCLUSION: 1. No evidence of pulmonary embolism. 2. Distended thick-walled gallbladder raising the possibility of cholecystitis. Clinical correlation is recommended. Dwight Avila MD Abdomen/Pelvis CT 09/28/16 0909 Signed Impressions: Service Date/Time: Wednesday, September 28, 2016 09:22 - CONCLUSION: 1. Findings of prior bowel surgery with surgical clips at the rectosigmoid junction suggesting prior colonic resection. 2. Mild diverticular disease of the descending and sigmoid colon without diverticulitis. 3. Gallbladder is distended with suggestion of some dural thickening along the medial wall. If patient has right upper quadrant abdominal pain, ultrasound or HIDA scan may be useful for further characterization. 4. The appendix is identified and is radiographically normal. 5. A 1-1.5 cm benign-appearing cyst or hemangioma in the left hepatic lobe adjacent to the gallbladder. Hever Sesay MD Chest X-Ray 09/28/16 0729 Signed Impressions: Service Date/Time: Wednesday, September 28, 2016 07:44 - CONCLUSION: No acute disease. Dwight Avila MD Gall Bladder Ultrasound 09/28/16 0000 Signed Impressions: Service Date/Time: Wednesday, September 28, 2016 11:19 - CONCLUSION: 1. Thick walled gallbladder with minimal pericholecystic fluid and some debris. The findings suggest acute cholecystitis. Clinical correlation is recommended. A hepatobiliary scan may be helpful to confirm cystic duct obstruction if clinically indicated. 2. Tiny echogenic focus within the left lobe of the liver measuring 1.2 x 1.1 x 1.3 cm consistent with possible hemangioma. Dwight Avila MD Assessment and Plan Assessment and Plan 40-year-old male with a evaluation consistent with acute cholecystitis. He has had pain for about 10 days and therefore we'll attempt to treat him nonoperatively at this time with IV antibiotics and plan for interval cholecystectomy in approximately 6 weeks. He does have elevation of LFTs and this may be due to severe gallbladder inflammation. I will repeat LFTs in the morning for follow-up. Clear liquids at this time. Ran Mendez MD Sep 28, 2016 15:54
--- NOTE | 2016-09-28 16:14 | EKG ---
Date Performed: 09/28/2016 Time Performed: 07:42:10 PTAGE: 40 years EKG: SINUS TACHYCARDIA When compared to previous tracing, heart rate is faster, Otherwise no sig nificant change. ABNORMAL RHYTHM ECG PREVIOUS TRACING : 09/22/2016 16.59 DOCTOR: Lyndon Green Interpretating Date/Time 09/28/2016 16:14:22
[2016-09-28 17:00] VITALS: BP 122/78; PULSE 84; RESP 16; TEMP 97; O2SAT 97
[2016-09-28] MEDS: ACETAMINOPHEN/HYDROcodone 325 MG/5 MG TAB PO PRN ×2 (17:55→23:03)
[2016-09-28 20:00] VITALS: BP 125/74; PULSE 96; RESP 16; TEMP 97.8; O2SAT 96
[2016-09-28] MEDS: SODIUM CHLORIDE 0.9% FLUSH 5 ML FLUSH IV SCH (21:18)
[2016-09-28] MEDS: HYDROmorphone HCL PF 1 MG/ML VIAL IV PRN (21:19)
[2016-09-29] VITALS: BP 125/74; PULSE 92; RESP 16; TEMP 98.5; O2SAT 96
[2016-09-29] MEDS: HYDROmorphone HCL PF 1 MG/ML VIAL IV PRN ×4 (02:20→20:39)
[2016-09-29] MEDS: ACETAMINOPHEN/HYDROcodone 325 MG/5 MG TAB PO PRN ×5 (04:07→23:12)
[2016-09-29 05:06] LABS: AUTOMATED NEUTROPHIL # 9.7 TH/MM3 (1.8-7.7); BASOPHIL # 0.1 TH/MM3 (0-0.2); BASOPHIL % 0.6 % (0.0-2.0); EOSINOPHIL # 0.3 TH/MM3 (0-0.4); HEMATOCRIT 34.7 % (39.0-51.0); HEMO FLAGS DIFF FINAL; LYMPH % 13.1 % (9.0-44.0); LYMPHOCYTE # 1.8 TH/MM3 (1.0-4.8); MEAN CELL VOLUME 83.9 FL (80.0-100.0); MEAN CORPUSCULAR HEMOGLOBIN 29.3 PG (27.0-34.0); MEAN CORPUSCULAR HGB CONC 34.9 % (32.0-36.0); MONO % 13.9 % (0.0-8.0); NEUT % 70.4 % (16.0-70.0); PLATELET COUNT 199 TH/MM3 (150-450); RED BLOOD COUNT 4.14 MIL/MM3 (4.50-5.90); RED CELL DISTRIBUTION WIDTH 13.9 % (11.6-17.2); WHITE BLOOD COUNT 13.8 TH/MM3 (4.0-11.0)
[2016-09-29 05:31] LABS: ALKALINE PHOSPHATASE 139 U/L (45-117); ALT (GPT) 42 U/L (12-78); ANION GAP 10 MEQ/L (5-15); AST (GOT) 29 U/L (15-37); BICARBONATE 24.8 MEQ/L (21.0-32.0); BLOOD UREA NITROGEN 10 MG/DL (7-18); CHLORIDE 104 MEQ/L (98-107); GLOMERULAR FILTRATION RATE 95 ML/MIN (>89); POTASSIUM 3.4 MEQ/L (3.5-5.1); SODIUM (NA) 139 MEQ/L (136-145); TOTAL BILIRUBIN ADULT 1.9 MG/DL (0.2-1.0)
[2016-09-29] MEDS: metroNIDAZOLE 500 MG INJ 100 ML IV SCH ×3 (06:12→23:11)
[2016-09-29] MEDS: SODIUM CHLOR 0.9% 1000 ML INJ 1,000 ML IV SCH ×2 (06:12→13:56)
[2016-09-29 08:00] VITALS: BP 116/76; PULSE 85; RESP 17; TEMP 95.4; O2SAT 95
[2016-09-29] MEDS: SODIUM CHLORIDE 0.9% FLUSH 5 ML FLUSH IV SCH ×2 (09:00→20:40)
[2016-09-29] MEDS: DEXTROAMPHETAMINE/AMPHETAMINE XR 20 MG CAP PO SCH (09:00)
[2016-09-29 12:00] VITALS: BP 119/72; PULSE 80; RESP 17; TEMP 95.6; O2SAT 98
[2016-09-29] MEDS: LEVOFLOXACIN 500 MG PREMIX INJ 100 ML IV SCH (12:15)
[2016-09-29] MEDS ORDERED: POTASSIUM CHLORIDE 10 MEQ CONTROLLED RELEASE TAB PO ONE (14:00)
--- NOTE | 2016-09-29 14:09 | HHI.PR ---
Subjective Subjective Notes Pt states pain better though still require pain meds Objective Vitals/I&O Vital Signs Date Time Temp Pulse Resp B/P Pulse Ox O2 Delivery O2 Flow Rate FiO2 09/29/16 12:00 95.6 80 17 119/72 98 09/28/16 14:21 Room Air Labs Laboratory Tests Test 09/29/16 03:55 White Blood Count 13.8 Red Blood Count 4.14 Hemoglobin 12.1 Hematocrit 34.7 Mean Corpuscular Volume 83.9 Mean Corpuscular Hemoglobin 29.3 Mean Corpuscular Hemoglobin 34.9 Concent Red Cell Distribution Width 13.9 Platelet Count 199 Mean Platelet Volume 8.1 Neutrophils (%) (Auto) 70.4 Lymphocytes (%) (Auto) 13.1 Monocytes (%) (Auto) 13.9 Eosinophils (%) (Auto) 2.0 Basophils (%) (Auto) 0.6 Neutrophils # (Auto) 9.7 Lymphocytes # (Auto) 1.8 Monocytes # (Auto) 1.9 Eosinophils # (Auto) 0.3 Basophils # (Auto) 0.1 CBC Comment DIFF FINAL Differential Comment Sodium Level 139 Potassium Level 3.4 Chloride Level 104 Carbon Dioxide Level 24.8 Anion Gap 10 Blood Urea Nitrogen 10 Creatinine 0.89 Estimat Glomerular Filtration 95 Rate Random Glucose 93 Calcium Level 8.4 Total Bilirubin 1.9 Aspartate Amino Transf 29 (AST/SGOT) Alanine Aminotransferase 42 (ALT/SGPT) Alkaline Phosphatase 139 Total Protein 6.2 Albumin 2.7 Date/Time Procedure Status Source Growth 09/28/16 08:30 Influenza Types A,B Antigen (MUSTAPHA) - Final Complete Nasal Washing NEGATIVE FOR FLU A AND B ANTIGEN.... Radiology Last Impressions CT Angiography 09/28/16908 Signed Impressions: Service Date/Time: Wednesday, September 28, 2016 09:22 - CONCLUSION: 1. No evidence of pulmonary embolism. 2. Distended thick-walled gallbladder raising the possibility of cholecystitis. Clinical correlation is recommended. Dwight Avila MD Abdomen/Pelvis CT 09/28/16908 Signed Impressions: Service Date/Time: Wednesday, September 28, 2016 09:22 - CONCLUSION: 1. Findings of prior bowel surgery with surgical clips at the rectosigmoid junction suggesting prior colonic resection. 2. Mild diverticular disease of the descending and sigmoid colon without diverticulitis. 3. Gallbladder is distended with suggestion of some dural thickening along the medial wall. If patient has right upper quadrant abdominal pain, ultrasound or HIDA scan may be useful for further characterization. 4. The appendix is identified and is radiographically normal. 5. A 1-1.5 cm benign-appearing cyst or hemangioma in the left hepatic lobe adjacent to the gallbladder. Hever Sesay MD Chest X-Ray 09/28/16 0729 Signed Impressions: Service Date/Time: Wednesday, September 28, 2016 07:44 - CONCLUSION: No acute disease. Dwight Avila MD Gall Bladder Ultrasound 09/28/16 0000 Signed Impressions: Service Date/Time: Wednesday, September 28, 2016 11:19 - CONCLUSION: 1. Thick walled gallbladder with minimal pericholecystic fluid and some debris. The findings suggest acute cholecystitis. Clinical correlation is recommended. A hepatobiliary scan may be helpful to confirm cystic duct obstruction if clinically indicated. 2. Tiny echogenic focus within the left lobe of the liver measuring 1.2 x 1.1 x 1.3 cm consistent with possible hemangioma. Dwight Avila MD Cardiovascular: Regular Lungs: Clear Extremities: Perfused Narrative Exam abd pos tenderness epigastrium A/P Assessment and Plan Cholecystitis somewhat better today on ABX will cont abx full liquids if cont to improve will plan d/c with cholecystectomy at a later date Scar Lombardo MD Sep 29, 2016 14:09
[2016-09-29 16:00] VITALS: BP 116/70; PULSE 83; RESP 17; TEMP 95.4; O2SAT 98
[2016-09-29 20:00] VITALS: BP 140/92; PULSE 96; RESP 21; TEMP 96; O2SAT 98
[2016-09-30] VITALS: BP 148/83; PULSE 96; RESP 20; TEMP 97.9; O2SAT 97
[2016-09-30] MEDS: HYDROmorphone HCL PF 1 MG/ML VIAL IV PRN ×2 (03:17→09:13)
[2016-09-30] MEDS: metroNIDAZOLE 500 MG INJ 100 ML IV SCH (06:12)
[2016-09-30] MEDS: ACETAMINOPHEN/HYDROcodone 325 MG/5 MG TAB PO PRN ×2 (06:13→11:27)
[2016-09-30 07:04] LABS: BASOPHIL # 0.1 TH/MM3 (0-0.2); BASOPHIL % 0.5 % (0.0-2.0); EOSINOPHIL # 0.2 TH/MM3 (0-0.4); EOSINOPHIL % 2.3 % (0.0-4.0); HEMATOCRIT 34.4 % (39.0-51.0); HEMO FLAGS DIFF FINAL; MEAN CELL VOLUME 83.3 FL (80.0-100.0); MEAN CORPUSCULAR HEMOGLOBIN 29.7 PG (27.0-34.0); MEAN CORPUSCULAR HGB CONC 35.7 % (32.0-36.0); MONO % 10.9 % (0.0-8.0); NEUT % 67.3 % (16.0-70.0); PLATELET COUNT 239 TH/MM3 (150-450); RED BLOOD COUNT 4.13 MIL/MM3 (4.50-5.90); RED CELL DISTRIBUTION WIDTH 13.5 % (11.6-17.2); WHITE BLOOD COUNT 10.5 TH/MM3 (4.0-11.0)
[2016-09-30 07:32] LABS: INDIRECT BILIRUBIN 0.6 MG/DL (0.0-0.8)
[2016-09-30 08:00] VITALS: BP 120/68; PULSE 71; RESP 17; TEMP 95.1; O2SAT 93
[2016-09-30] MEDS: SODIUM CHLORIDE 0.9% FLUSH 5 ML FLUSH IV SCH (09:00)
[2016-09-30] MEDS: DEXTROAMPHETAMINE/AMPHETAMINE XR 20 MG CAP PO SCH (09:04)
[2016-09-30] MEDS: SODIUM CHLOR 0.9% 1000 ML INJ 1,000 ML IV SCH ×2 (09:04→14:54)
[2016-09-30 12:00] VITALS: BP 131/60; PULSE 69; RESP 17; TEMP 96.4; O2SAT 95
[2016-09-30] MEDS ORDERED: ZOFR4TAB3 SL (12:52)
[2016-09-30] MEDS ORDERED: NORC5TAB PO (12:52)
[2016-09-30] MEDS ORDERED: METR-1 PO (12:52)
[2016-09-30] MEDS ORDERED: LEVA500T PO (12:52)
--- NOTE | 2016-09-30 13:30 | HHI.PR ---
Subjective Subjective Notes pt states pain better nausea earlier no emesis with meals Objective Vitals/I&O Vital Signs Date Time Temp Pulse Resp B/P Pulse Ox O2 Delivery O2 Flow Rate FiO2 09/30/16 08:00 95.1 71 17 120/68 93 09/28/16 14:21 Room Air Labs Laboratory Tests Test 09/30/16 09/30/16 05:51 05:55 White Blood Count 10.5 Red Blood Count 4.13 Hemoglobin 12.3 Hematocrit 34.4 Mean Corpuscular Volume 83.3 Mean Corpuscular Hemoglobin 29.7 Mean Corpuscular Hemoglobin 35.7 Concent Red Cell Distribution Width 13.5 Platelet Count 239 Mean Platelet Volume 8.2 Neutrophils (%) (Auto) 67.3 Lymphocytes (%) (Auto) 19.0 Monocytes (%) (Auto) 10.9 Eosinophils (%) (Auto) 2.3 Basophils (%) (Auto) 0.5 Neutrophils # (Auto) 7.0 Lymphocytes # (Auto) 2.0 Monocytes # (Auto) 1.1 Eosinophils # (Auto) 0.2 Basophils # (Auto) 0.1 CBC Comment DIFF FINAL Differential Comment Total Bilirubin 1.0 Direct Bilirubin 0.4 Indirect Bilirubin 0.6 Aspartate Amino Transf 15 (AST/SGOT) Alanine Aminotransferase 35 (ALT/SGPT) Alkaline Phosphatase 181 Total Protein 6.7 Albumin 2.7 Date/Time Procedure Status Source Growth 09/28/16 08:30 Influenza Types A,B Antigen (MUSTAPHA) - Final Complete Nasal Washing NEGATIVE FOR FLU A AND B ANTIGEN.... Radiology Last Impressions CT Angiography 09/28/16908 Signed Impressions: Service Date/Time: Wednesday, September 28, 2016 09:22 - CONCLUSION: 1. No evidence of pulmonary embolism. 2. Distended thick-walled gallbladder raising the possibility of cholecystitis. Clinical correlation is recommended. Dwight Avila MD Abdomen/Pelvis CT 09/28/16908 Signed Impressions: Service Date/Time: Wednesday, September 28, 2016 09:22 - CONCLUSION: 1. Findings of prior bowel surgery with surgical clips at the rectosigmoid junction suggesting prior colonic resection. 2. Mild diverticular disease of the descending and sigmoid colon without diverticulitis. 3. Gallbladder is distended with suggestion of some dural thickening along the medial wall. If patient has right upper quadrant abdominal pain, ultrasound or HIDA scan may be useful for further characterization. 4. The appendix is identified and is radiographically normal. 5. A 1-1.5 cm benign-appearing cyst or hemangioma in the left hepatic lobe adjacent to the gallbladder. Hever Sesay MD Chest X-Ray 09/28/16 0729 Signed Impressions: Service Date/Time: Wednesday, September 28, 2016 07:44 - CONCLUSION: No acute disease. Dwight Avila MD Gall Bladder Ultrasound 09/28/16 0000 Signed Impressions: Service Date/Time: Wednesday, September 28, 2016 11:19 - CONCLUSION: 1. Thick walled gallbladder with minimal pericholecystic fluid and some debris. The findings suggest acute cholecystitis. Clinical correlation is recommended. A hepatobiliary scan may be helpful to confirm cystic duct obstruction if clinically indicated. 2. Tiny echogenic focus within the left lobe of the liver measuring 1.2 x 1.1 x 1.3 cm consistent with possible hemangioma. Dwight Avila MD Cardiovascular: Regular Lungs: Clear Abdomen: Non-tender A/P Assessment and Plan Cholecystitis improving on abx advance diet to low fat if debra d/c home on abx Scar Lombardo MD Sep 30, 2016 13:30
[2016-09-30 16:00] VITALS: BP 140/60; PULSE 73; RESP 17; TEMP 97.4; O2SAT 98
--- NOTE | 2016-10-20 17:27 | ED.CB ---
ED Call Back Communication I was called by Dr. becerril. This patient a couple days status post laparoscopic cholecystectomy. He was sent home with NSAID pain medication but is having worsening pain. Dr. becerril requested I give him prescription for Lortab 5/325, # 12 as the office is not open and has no way of getting this to the patient because he can call again. We will leave it for him at the triage desk. Jt Lobato MD Oct 20, 2016 17:27
== END 2016-09-30 18:03 | disposition home or self-care (01) | DRG 446 ==
LOC: NEPE 07:05 → NEDA 07:07 → N07A 16:03
PROVIDERS: ADMIT Surgery; ATTEND Surgery
DX: K81.0 Acute cholecystitis (principal); F41.9 Anxiety disorder, unspecified; F98.8 Other specified behavioral and emotional disorders with onset usually occurring in childhood and adolescence; F12.90 Cannabis use, unspecified, uncomplicated; Z87.891 Personal history of nicotine dependence
CPT/HCPCS: 71010; 71275; 74177; 76705; 80048; 80053; 80076; 81001; 82550; 84484; 85025; 85379; 85610; 85730; 87804; 93005; J1170; J1956; J2270; J2405; J2543; J7030; Q9967

== ENCOUNTER 2016-10-17 07:32 | Observation (INO) | payer OTHER ==
[~2016-10-17] VITALS: Ht 188 cm; Wt 112.0 kg
[~2016-10-17 07:32] MED LIST changes: +LEVA500T PO; +METR-1 PO; +NORC5TAB PO; -OXYC1CAP PO; +ZOFR4TAB3 SL
[2016-10-17 07:33] VITALS: BP 142/94; PULSE 84; RESP 16; TEMP 98.3; O2SAT 98
[2016-10-17 07:51] VITALS: O2SAT 99
[2016-10-17] MEDS ORDERED: PROPOFOL 200 MG/20 ML AMP IV ONE (08:02)
[2016-10-17] MEDS ORDERED: ONDANSETRON HCL 4 MG/2 ML VIAL IV PUSH ONE ×2 (08:02→08:15)
[2016-10-17] MEDS ORDERED: LACTATED RINGER'S 1000 ML INJ 1,000 ML IV ONE (08:02)
[2016-10-17] MEDS ORDERED: NEOSTIGMINE 3 MG/3 ML SYR IV ONE (08:02)
[2016-10-17] MEDS ORDERED: SODIUM CHLOR 0.9% 1000 ML INJ 1,000 ML IV SCH (08:13)
[2016-10-17] MEDS ORDERED: SODIUM CHLORIDE 0.9% FLUSH 5 ML FLUSH IVF PRN ×2 (08:15→12:15)
[2016-10-17] MEDS ORDERED: MORPHINE SULFATE 4 MG/ML INJ IV PUSH ONE (08:15)
--- NOTE | 2016-10-17 08:15 | PD ---
HPI Chief Complaint: Abdominal Pain Time Seen by Provider: 07:46 Travel History International Travel<30 days: No Contact w/Intl Traveler<30days: No Traveled to known affect area: No History of Present Illness HPI 40-year-old male came to the emergency room with history of epigastric and right upper quadrant pain since this morning. Patient says that about 2-3 weeks ago he was admitted after being diagnosed with gallstones. His white count was very high and he was given IV antibiotics. He was seen by Dr. Lombardo and was supposed to follow up with him to schedule a cholecystectomy. However the pain started again today when he decided to come into the emergency room. He has vomited couple times this morning. He looks uncomfortable and says he is nauseous. He says this pain is exactly in the same spot as it was last time. No history of fever or chills. Vital signs were stable. No particular aggravating or relieving factor this time. PFSH Past Medical History Narrative Medical List of his past medical, surgical, social and family history is been reviewed from the nursing note. ADD: Yes ADHD: Yes Anxiety: Yes Depression: No Cancer: No Cardiovascular Problems: No Diminished Hearing: No Diverticulitis: Yes Endocrine: No Gastrointestinal Disorders: Yes (DIVERTICULITIS) Genitourinary: No Immune Disorder: No Medical other: Yes (adhd) Musculoskeletal: No Neurologic: No Psychiatric: No Reproductive: No Respiratory: No Immunizations Current: Yes Past Surgical History Abdominal Surgery: Yes (FISTULA REPAIR, BOWEL RECONNECT) AICD: No Arteriovenous Shunt: No Cardiac Surgery: No Ear Surgery: No Endocrine Surgery: No Eye Surgery: No Genitourinary Surgery: No Gynecologic Surgery: No Insulin Pump: No Joint Replacement: No Oral Surgery: Yes (WISDOM TEETH) Pacemaker: No Thoracic Surgery: No Other Surgery: Yes (FISTULA REPAIR, WISDOM TEETH) Social History Alcohol Use: Yes (RARELY) Tobacco Use: No (QUIT 05/04) Substance Use: Yes (MARIJUANA) Allergies-Medications (Allergen,Severity, Reaction): Coded Allergies: No Known Allergies (Unverified , 10/17/16) Comments No known drug allergies. Reported Meds & Prescriptions Reported Meds & Active Scripts Active Flagyl (Metronidazole) 500 Mg Tab 500 Mg PO TID Levaquin (Levofloxacin) 500 Mg Tab 500 Mg PO DAILY Zofran Odt (Ondansetron Odt) 4 Mg Tab 4 Mg SL Q8HR PRN [place] (Hydrocodone-Acetaminophen) 5-325 mg Tab 1 Tab PO Q4H PRN Tramadol (Tramadol HCl) 50 Mg Tab 50 Mg PO Q6H PRN Reported Xanax (Alprazolam) 0.5 Mg Tab 0.5 Mg PO Q12HR PRN Adderall Xr 24 HR (Amphetamine/Dextroamphetamine) 20 Mg Cap 20 Mg PO DAILY Once daily in the morning. Narrative Medication List of his medications reviewed from the nursing note. Review of Systems Except as stated in HPI: all other systems reviewed are Neg Physical Exam Narrative GENERAL: Awake, alert, moderate distress, anxious SKIN: Warm and dry. HEAD: Atraumatic. Normocephalic. EYES: Pupils equal and round. No scleral icterus. No injection or drainage. ENT: No nasal bleeding or discharge. Mucous membranes pink and moist. NECK: Trachea midline. No JVD. CARDIOVASCULAR: Regular rate and rhythm. No murmur appreciated. RESPIRATORY: No accessory muscle use. Clear to auscultation. Breath sounds equal bilaterally. GASTROINTESTINAL: Positive Alexis sign, nondistended. Hepatic and splenic margins not palpable. MUSCULOSKELETAL: No obvious deformities. No clubbing. No cyanosis. No edema. NEUROLOGICAL: Awake and alert. No obvious cranial nerve deficits. Motor grossly within normal limits. Normal speech. PSYCHIATRIC: Appropriate mood and affect; insight and judgment normal. Data Data Last Documented VS Vital Signs Date Time Temp Pulse Resp B/P Pulse Ox O2 Delivery O2 Flow Rate FiO2 10/17/16 07:51 99 Room Air 10/17/16 07:33 98.3 84 16 142/94 Orders Complete Blood Count With Diff (10/17/16 08:13) Comprehensive Metabolic Panel (10/17/16 08:13) Lipase (10/17/16 08:13) Prothrombin Time / Inr (Pt) (10/17/16 08:13) Iv Access Insert/Monitor (10/17/16 08:13) Ecg Monitoring (10/17/16 08:13) Oximetry (10/17/16 08:13) Morphine Inj (Morphine Inj) (10/17/16 08:15) Sodium Chlor 0.9% 1000 Ml Inj (Ns 1000 M (10/17/16 08:13) Sodium Chloride 0.9% Flush (Ns Flush) (10/17/16 08:15) Ondansetron Inj (Zofran Inj) (10/17/16 08:15) Piperacil-Tazo 3.375 Gm Premix (Zosyn 3. (10/17/16 08:30) Us Abdomen Gallbladder (10/17/16 ) Admit Order (Ed Use Only) (10/17/16 09:39) Labs Laboratory Tests Test 10/17/16 08:20 White Blood Count 10.9 TH/MM3 Red Blood Count 4.96 MIL/MM3 Hemoglobin 14.5 GM/DL Hematocrit 41.8 % Mean Corpuscular Volume 84.3 FL Mean Corpuscular Hemoglobin 29.3 PG Mean Corpuscular Hemoglobin 34.8 % Concent Red Cell Distribution Width 14.6 % Platelet Count 263 TH/MM3 Mean Platelet Volume 8.4 FL Neutrophils (%) (Auto) 73.3 % Lymphocytes (%) (Auto) 15.9 % Monocytes (%) (Auto) 9.5 % Eosinophils (%) (Auto) 0.8 % Basophils (%) (Auto) 0.5 % Neutrophils # (Auto) 8.0 TH/MM3 Lymphocytes # (Auto) 1.7 TH/MM3 Monocytes # (Auto) 1.0 TH/MM3 Eosinophils # (Auto) 0.1 TH/MM3 Basophils # (Auto) 0.1 TH/MM3 CBC Comment DIFF FINAL Differential Comment Prothrombin Time 10.1 SEC Prothromb Time International 0.9 RATIO Ratio Sodium Level 139 MEQ/L Potassium Level 3.9 MEQ/L Chloride Level 105 MEQ/L Carbon Dioxide Level 26.2 MEQ/L Anion Gap 8 MEQ/L Blood Urea Nitrogen 19 MG/DL Creatinine 1.08 MG/DL Estimat Glomerular Filtration 76 ML/MIN Rate Random Glucose 115 MG/DL Calcium Level 8.7 MG/DL Total Bilirubin 1.4 MG/DL Aspartate Amino Transf 166 U/L (AST/SGOT) Alanine Aminotransferase 143 U/L (ALT/SGPT) Alkaline Phosphatase 128 U/L Total Protein 6.9 GM/DL Albumin 3.7 GM/DL Lipase 197 U/L [facility] Medical Decision Making Medical Screen Exam Complete: Yes Emergency Medical Condition: Yes Medical Record Reviewed: Yes Differential Diagnosis Acute cholecystitis, biliary colic Narrative Course 9:01 AM CBC is back and within acceptable limits. LFTs are slightly elevated. Patient was given a dose of IV antibiotics, IV fluid bolus and pain medication. I tried getting hold of Dr. Lombardo but he is out of town. Dr. Ivy was covering for him and is going to call us back. In my opinion patient might require the gallbladder to be taken out this time. I will wait and see what the surgeon suggests. 9:40 AM I discussed the case with Dr. Ivy who wanted an ultrasound of the gallbladder look at the common bile doctor. He did not want to admit the patient until the ultrasound was resulted. outer diameter technician is here in the room ready to start doing the procedure but then Dr. Lombardo called and spoke with the nurse and said that he would take the patient to the OR. Patient is currently getting ready to go to the OR. I did not speak to Dr. Lombardo and this was information given to me by the nurse. Procedures EKG Prior to Arrival: No Physician Communication Physician Communication Dr. Ivy Diagnosis Primary Impression: Acute cholecystitis Admitting Information Admitting Physician Requests: Admit Betty Garcia MD Oct 17, 2016 08:15
[2016-10-17] MEDS ORDERED: PIPERACIL-TAZO 3.375 GM PREMIX 50 ML IV ONE (08:30)
[2016-10-17 08:42] LABS: BASOPHIL # 0.1 TH/MM3 (0-0.2); BASOPHIL % 0.5 % (0.0-2.0); EOSINOPHIL # 0.1 TH/MM3 (0-0.4); EOSINOPHIL % 0.8 % (0.0-4.0); HEMATOCRIT 41.8 % (39.0-51.0); HEMO FLAGS DIFF FINAL; LYMPH % 15.9 % (9.0-44.0); LYMPHOCYTE # 1.7 TH/MM3 (1.0-4.8); MEAN CELL VOLUME 84.3 FL (80.0-100.0); MEAN CORPUSCULAR HEMOGLOBIN 29.3 PG (27.0-34.0); MEAN CORPUSCULAR HGB CONC 34.8 % (32.0-36.0); MONO % 9.5 % (0.0-8.0); NEUT % 73.3 % (16.0-70.0); PLATELET COUNT 263 TH/MM3 (150-450); RED BLOOD COUNT 4.96 MIL/MM3 (4.50-5.90); RED CELL DISTRIBUTION WIDTH 14.6 % (11.6-17.2); WHITE BLOOD COUNT 10.9 TH/MM3 (4.0-11.0)
[2016-10-17 08:55] LABS: ANION GAP 8 MEQ/L (5-15); AST (GOT) 166 U/L (15-37); BICARBONATE 26.2 MEQ/L (21.0-32.0); BLOOD UREA NITROGEN 19 MG/DL (7-18); CHLORIDE 105 MEQ/L (98-107); GLOMERULAR FILTRATION RATE 76 ML/MIN (>89); POTASSIUM 3.9 MEQ/L (3.5-5.1); SODIUM (NA) 139 MEQ/L (136-145)
[2016-10-17 08:58] LABS: ALKALINE PHOSPHATASE 128 U/L (45-117); ALT (GPT) 143 U/L (12-78); INTERNATIONAL NORMALIZED RATIO 0.9 RATIO; PROTHROMBIN TIME - PATIENT 10.1 SEC (9.8-11.6); TOTAL BILIRUBIN ADULT 1.4 MG/DL (0.2-1.0)
[2016-10-17] MEDS ORDERED: METRONIDAZOLE 500 MG/100 ML ISONTONIC SOLN IV ONE (10:00)
[2016-10-17] MEDS ORDERED: LEVOFLOXACIN 500 MG PREMIX INJ 100 ML IV ONE (10:00)
--- NOTE | 2016-10-17 10:09 | MH ---
cc: ARMANI MARRERO DATE OF ADMISSION 10/17/2016 REASON FOR ADMISSION Cholecystitis HISTORY This is a 36-year-old male with a history of cholecystitis who was is being manage nonoperatively. He experienced abdominal pain last evening in the right upper quadrant going to his right back with associated nausea. The pain was following a meal consisting of mashed potatoes and chicken. He denies fevers or chills. No urinary symptoms. PAST MEDICAL HISTORY Significant for: 1. ADHD 2. Diverticulitis PAST SURGICAL HISTORY Significant for laparoscopic partial colectomy MEDICATIONS The patient is on medications at home that include: 1. Levaquin 2. Flagyl 3. Zofran ALLERGIES NO KNOWN DRUG ALLERGIES. SOCIAL HISTORY He does not smoke. He drinks alcohol occasionally. FAMILY HISTORY Noncontributory REVIEW OF SYSTEMS Significant for above. All other 10-point review negative. PHYSICAL EXAM On exam, he is laying on a stretcher in no acute distress. HEAD, EYES, EARS, NOSE, AND THROAT: His pupils are equal and reactive. His trachea is midline. NECK: Without JVD. LUNGS: Respirations clear. CARDIOVASCULAR: Regular. GASTROINTESTINAL: Soft, positive tenderness right upper quadrant. MUSCULOSKELETAL: No deformities. NEUROLOGIC: Nonfocal. LABORATORY DATA The patient's blood work, his white count is 10.9, neutrophils are 73. LFTs T-bili of 1.4, AST 166, ALT 143, lipase 197. ASSESSMENT This is a patient with cholecystitis. We will taken him to the operating room for laparoscopic cholecystectomy. The risks and benefits explained to include, but not be exclusive to infection, bleeding, bowel injury, bile duct injury, technical aspects explained as well as augie and postoperative course. The patient verbalized understanding, consent obtained. We will proceed to the OR. MD ANTONIO Olguin/CORNELIO /9:52 AM /10:06 AM
[2016-10-17] MEDS ORDERED: HYDROmorphone HCL PF 2 MG/ML VIAL ONE (10:12)
[2016-10-17] MEDS ORDERED: FAMOTIDINE 20 MG/2 ML VIAL ONE (10:12)
[2016-10-17] MEDS ORDERED: MIDAZOLAM HCL 2 MG/2 ML VIAL ONE (10:12)
[2016-10-17] MEDS ORDERED: fentaNYL CITRATE 250 MCG/5 ML AMP ONE (10:12)
[2016-10-17] MEDS ORDERED: ACETAMINOPHEN 1000 MG/100 ML VIAL IV ONE (10:12)
--- NOTE | 2016-10-17 10:19 | RADRPT ---
EXAM DATE/TIME: 10/17/2016 09:32 [place] COMPARISON: US ABDOMEN - GALLBLADDER, September 28, 2016, 11:19. INDICATIONS : Right upper quadrant pain, increased LFT's. MEDICAL HISTORY : Diverticulitis. SURGICAL HISTORY : Fistula repair. Bowel reconnection. ENCOUNTER: Subsequent ACUITY: 3 weeks PAIN SCORE: 5/10 LOCATION: Right upper quadrant MEASUREMENTS: LIVER: 14.8 cm length COMMON DUCT: 8 mm RIGHT KIDNEY: Not evaulated. FINDINGS: Exam was limited. LIVER: Borderline echogenic without focal lesion or ductal dilatation. COMMON DUCT: No intraluminal mass or stone visualized. GALLBLADDER: Gallbladder was not imaged as patient was going to the operating room for cholecystectomy. PANCREAS: The visualized portions are within normal limits. RIGHT KIDNEY: No evidence of hydronephrosis, stone, or mass. CONCLUSION: 1. Common bile duct prominent. 2. Gallbladder not imaged. 3. Liver is borderline echogenic which can be seen with fatty infiltration. Herb Workman MD on October 17, 2016 at 10:09 Board Certified Radiologist. This report was verified electronically.
[2016-10-17] MEDS ORDERED: BUPIVACAINE/EPINEPHRINE 0.25% 50 ML VIAL INFIL ONE (10:31)
[2016-10-17] MEDS: D5-1/2 NS + KCL 20 MEQ INJ 1,000 ML IV SCH ×3 (12:06→20:26)
[2016-10-17] MEDS ORDERED: Post-op Orders (for Pharmacy) MISC XX ONE (12:15)
[2016-10-17] MEDS ORDERED: ONDANSETRON HCL 4 MG/2 ML VIAL IV PRN (12:15)
[2016-10-17] MEDS ORDERED: NALOXONE HCL 0.4 MG/ML AMP IV PRN (12:15)
[2016-10-17] MEDS ORDERED: ACETAMINOPHEN/HYDROcodone 325 MG/5 MG TAB PO PRN (12:15)
[2016-10-17] MEDS ORDERED: *morphine SULFATE 8 MG/ML PERIprocedure ONLY ONE ×3 (12:43→13:41)
[2016-10-17] MEDS: ACETAMINOPHEN/HYDROcodone 325 MG/10 MG TAB PO PRN ×2 (15:07→20:18)
[2016-10-17 16:00] VITALS: BP 104/57; PULSE 72; RESP 18; TEMP 97.9; O2SAT 95
[2016-10-17] MEDS: metroNIDAZOLE 500 MG INJ 100 ML IV SCH (17:03)
[2016-10-17] MEDS: MORPHINE SULFATE 4 MG/ML INJ IV PRN ×2 (17:03→21:26)
[2016-10-17 20:00] VITALS: BP 122/65; PULSE 81; RESP 18; TEMP 97.8; O2SAT 95
[2016-10-17] MEDS: SODIUM CHLORIDE 0.9% FLUSH 5 ML FLUSH IVF SCH (21:27)
[2016-10-18] VITALS (7 sets, daily range): BP systolic 102–127; BP diastolic 59–67; PULSE 68–96; RESP 16–20; TEMP 95.7–97.4; O2SAT 94–98
[2016-10-18] MEDS: ACETAMINOPHEN/HYDROcodone 325 MG/10 MG TAB PO PRN ×6 (00:25→21:15)
[2016-10-18] MEDS: MORPHINE SULFATE 4 MG/ML INJ IV PRN ×3 (01:10→09:42)
[2016-10-18] MEDS: metroNIDAZOLE 500 MG INJ 100 ML IV SCH ×2 (01:11→08:24)
[2016-10-18] MEDS: D5-1/2 NS + KCL 20 MEQ INJ 1,000 ML IV SCH ×3 (08:06→20:17)
[2016-10-18] MEDS: SODIUM CHLORIDE 0.9% FLUSH 5 ML FLUSH IVF SCH ×2 (08:23→20:17)
--- NOTE | 2016-10-18 12:45 | HHI.PR ---
Subjective Subjective Notes C/o pain but appears comfortable. tolerating diet. Objective Vitals/I&O Vital Signs Date Time Temp Pulse Resp B/P Pulse Ox O2 Delivery O2 Flow Rate FiO2 10/18/16 09:49 94 Nasal Cannula 2.00 10/18/16 08:00 96.4 96 17 127/67 Narrative Exam NAD, AAO nonlabored breathing Abd: soft, post op ttp, inc c/d/i A/P Assessment and Plan POD 1 s/p lap areli for severe acute and gangrenous cholecystitis. ACOSTA somewhat bloody with moderate amt of output. I would like to keep him one more night to monitor ACOSTA output. Plan likely dc home in am. AndreaRan lomeli MD Oct 18, 2016 12:45
[2016-10-18] MEDS: KETOROLAC TROMETHAMINE 30 MG/ML (IVP) VIAL IV PUSH PRN ×2 (13:52→20:16)
[2016-10-18] MEDS: metroNIDAZOLE 500 MG TAB PO SCH ×2 (14:28→20:16)
[2016-10-18] MEDS: CIPROFLOXACIN 500 MG TAB PO SCH (20:16)
[2016-10-18 21:19] LABS: ALKALINE PHOSPHATASE 113 U/L (45-117); ALT (GPT) 169 U/L (12-78); ANION GAP 8 MEQ/L (5-15); AST (GOT) 67 U/L (15-37); BLOOD UREA NITROGEN 14 MG/DL (7-18); CHLORIDE 103 MEQ/L (98-107); GLOMERULAR FILTRATION RATE 90 ML/MIN (>89); POTASSIUM 3.4 MEQ/L (3.5-5.1); SODIUM (NA) 140 MEQ/L (136-145); TOTAL BILIRUBIN ADULT 0.8 MG/DL (0.2-1.0)
[2016-10-19 00:10] VITALS: BP 110/60; PULSE 76; RESP 18; TEMP 96.4; O2SAT 98
[2016-10-19] MEDS: ACETAMINOPHEN/HYDROcodone 325 MG/10 MG TAB PO PRN ×2 (04:30→14:52)
[2016-10-19] MEDS: metroNIDAZOLE 500 MG TAB PO SCH ×2 (04:30→14:51)
[2016-10-19 08:00] VITALS: BP 127/81; PULSE 83; RESP 22; TEMP 95.6; O2SAT 95
[2016-10-19] MEDS: SODIUM CHLORIDE 0.9% FLUSH 5 ML FLUSH IVF SCH (08:12)
[2016-10-19] MEDS: CIPROFLOXACIN 500 MG TAB PO SCH (08:12)
[2016-10-19] MEDS: KETOROLAC TROMETHAMINE 30 MG/ML (IVP) VIAL IV PUSH PRN (11:55)
[2016-10-19 12:00] VITALS: BP 142/74; PULSE 76; RESP 12; TEMP 97.8; O2SAT 96
[2016-10-19] MEDS: D5-1/2 NS + KCL 20 MEQ INJ 1,000 ML IV SCH (13:46)
[2016-10-19 16:00] VITALS: BP 130/76; PULSE 74; RESP 16; TEMP 96.4; O2SAT 95
--- NOTE | 2016-10-19 16:33 | HHI.PR ---
Subjective Subjective Notes The patient has moderate pain at a couple of the incisions but overall is feeling better. He has been up walking around without problem. He has been passing flatus but has not yet had a bowel movement. He is tolerating a regular diet. Objective Vitals/I&O Vital Signs Date Time Temp Pulse Resp B/P Pulse Ox O2 Delivery O2 Flow Rate FiO2 10/19/16 12:00 97.8 76 12 142/74 96 10/18/16 09:49 Nasal Cannula 2.00 Labs Laboratory Tests Test 10/18/16 19:15 Sodium Level 140 Potassium Level 3.4 Chloride Level 103 Carbon Dioxide Level 29.0 Anion Gap 8 Blood Urea Nitrogen 14 Creatinine 0.93 Estimat Glomerular Filtration 90 Rate Random Glucose 120 Calcium Level 7.8 Total Bilirubin 0.8 Aspartate Amino Transf 67 (AST/SGOT) Alanine Aminotransferase 169 (ALT/SGPT) Alkaline Phosphatase 113 Total Protein 5.9 Albumin 3.0 Cardiovascular: Regular Lungs: Clear Abdomen: Post-op tenderness Extremities: No edema A/P Assessment and Plan Impression: Status post laparoscopic cholecystectomy for acute cholecystitis. Doing extremely well at this point. Plan: Discharge today and follow-up with Dr. Nova in 2 weeks. I've given him clearance for regular diet and activities as tolerated. Prescription is given for Toradol. Troy Ivy MD Oct 19, 2016 16:33
--- NOTE | 2016-10-25 07:03 | MP ---
cc: ARMANI LOMBARDO DATE OF SURGERY 10/17/2016 DATE OF 1975 PREOPERATIVE DIAGNOSIS Cholecystitis POSTOPERATIVE DIAGNOSIS Cholecystitis PROCEDURE Laparoscopic cholecystectomy SURGEON Armani Lombardo MD PAPER MACHINE SUPERVISOR Ran Mendez MD ANESTHESIA General endotracheal anesthesia ESTIMATED BLOOD LOSS Scant FINDINGS Densely inflamed gallbladder with omentum adhesed to the gallbladder, edematous gallbladder wall with stones and hydrops of the gallbladder SPECIMEN Gallbladder with stones. COMPLICATIONS None OPERATION The patient was brought to the operating room and placed on the operating table in a supine position. Bilateral sequential inflation device placed on the lower extremities. General anesthesia was instituted. The abdomen was prepped and draped sterilely. A point in the periumbilical region was anesthetized with quarter percent Marcaine with epinephrine. A skin incision was made. A 5-mm OptiView port placed under direct vision and pneumoperitoneum created. Under direct vision, two 5-mm ports were placed in the right upper quadrant and a 12-mm port was placed in the right subxiphoid region. The patient was then placed in reverse Trendelenburg position right side up. Attention focused on the gallbladder. Adhesions of omentum to the gallbladder was taken down. The gallbladder was decompressed laparoscopically with a laparoscopic needle. The cystic artery was then dissected circumferentially with a harmonic scalpel. It was then divided. There was dense inflammation around the neck of the gallbladder. Using hydrodissection, attempts at identifying the cystic duct was made and thought to be a short cystic duct. As a result, it was decided to take the gallbladder in an antegrade fashion. The harmonic scalpel was used to separate the gallbladder from the gallbladder fossa in a dome down approach. Bleeding was encountered. This was controlled with a Bovie. The only remaining attachment to the gallbladder was the cystic duct. This appeared to be short and dilated. It was looped with a 2-0 Vicryl Endoloop and then transected above the loop. The operative field was inspected and hemostasis was present. No evidence of bile leak. The gallbladder was retrieved from the peritoneal cavity in an Endopouch. The upper abdomen was irrigated with copious amounts of saline. An 18-Bruneian round drain was left in the gallbladder fossa and brought out through the 5-mm port site in the right upper quadrant. The CO2 was released. All ports removed. All skin incisions closed with 4-0 Monocryl. The abdominal wall was cleaned and a sterile dressing placed. The patient was awakened and taken to the recovery room. MD ANTONIO Olguin/DJRoc /8:59 AM /6:54 AM
== END 2016-10-19 18:09 | disposition home or self-care (01) ==
LOC: NEPC 07:32 → NEDA 09:41 → INTOOBSV 09:41 → N07B 14:14
PROVIDERS: ADMIT Surgery; ATTEND Surgery
DX: K80.12 Calculus of gallbladder with acute and chronic cholecystitis without obstruction (principal); K82.1 Hydrops of gallbladder; K57.92 Diverticulitis of intestine, part unspecified, without perforation or abscess without bleeding; R11.2 Nausea with vomiting, unspecified; F12.90 Cannabis use, unspecified, uncomplicated; Z87.891 Personal history of nicotine dependence
CPT/HCPCS: 00790; 47562; 76705; 80053; 83690; 85025; 85610; 88304; 94150; 96365; 96375; 99285; G0378; J0131; J0690; J1170; J1885; J2250; J2270; J2405; J2543; J2710; J3010; J3480; J7030; J7120

== ENCOUNTER 2017-01-19 14:02 | Emergency (ER) | payer OTHER ==
[~2017-01-19] VITALS: Ht 188 cm; Wt 80.0 kg
[2017-01-19 14:02] VITALS: BP 147/89; PULSE 81; RESP 16; TEMP 97.5; O2SAT 97
[2017-01-19] MEDS ORDERED: SODIUM CHLOR 0.9% 1000 ML INJ 1,000 ML IV SCH (14:57)
[2017-01-19] MEDS ORDERED: SODIUM CHLORIDE 0.9% FLUSH 10 ML FLUSH IV FLUSH PRN (15:00)
[2017-01-19] MEDS ORDERED: ALUMINUM/MAGNESIUM/SIMETH 30 ML CUP PO ONE (15:00)
[2017-01-19] MEDS ORDERED: ASPIRIN 325 MG TAB PO ONE (15:00)
[2017-01-19] MEDS ORDERED: LIDOCAINE VISCOUS 2% SOLN 15 ML UDC PO ONE (15:00)
[2017-01-19] MEDS: NITROGLYCERIN 0.4 MG SL 25 TABS/BTL SL SCH ×3 (15:05→15:30)
[2017-01-19 15:15] LABS: AUTOMATED NEUTROPHIL # 9.1 TH/MM3 (1.8-7.7); BASOPHIL # 0.1 TH/MM3 (0-0.2); BASOPHIL % 0.6 % (0.0-2.0); EOSINOPHIL # 0.1 TH/MM3 (0-0.4); EOSINOPHIL % 0.9 % (0.0-4.0); HEMATOCRIT 51.4 % (39.0-51.0); HEMO FLAGS DIFF FINAL; LYMPH % 19.9 % (9.0-44.0); LYMPHOCYTE # 2.5 TH/MM3 (1.0-4.8); MEAN CELL VOLUME 86.7 FL (80.0-100.0); MEAN CORPUSCULAR HEMOGLOBIN 28.1 PG (27.0-34.0); MEAN CORPUSCULAR HGB CONC 32.4 % (32.0-36.0); MONO % 7.1 % (0.0-8.0); NEUT % 71.5 % (16.0-70.0); PLATELET COUNT 294 TH/MM3 (150-450); RED BLOOD COUNT 5.93 MIL/MM3 (4.50-5.90); WHITE BLOOD COUNT 12.7 TH/MM3 (4.0-11.0)
[2017-01-19 15:22] LABS: CHLORIDE 108 MEQ/L (98-107); POTASSIUM 4.2 MEQ/L (3.5-5.1); SODIUM (NA) 144 MEQ/L (136-145)
[2017-01-19 15:26] LABS: ANION GAP 7 MEQ/L (5-15); BICARBONATE 28.6 MEQ/L (21.0-32.0); BLOOD UREA NITROGEN 18 MG/DL (7-18)
[2017-01-19 15:29] LABS: ALT (GPT) 138 U/L (12-78); AST (GOT) 135 U/L (15-37); GLOMERULAR FILTRATION RATE 86 ML/MIN (>89)
[2017-01-19 15:30] LABS: APTT (PATIENT) 25.1 SEC (24.3-30.1); INTERNATIONAL NORMALIZED RATIO 0.9 RATIO; PROTHROMBIN TIME - PATIENT 9.9 SEC (9.8-11.6); TOTAL BILIRUBIN ADULT 1.1 MG/DL (0.2-1.0)
[2017-01-19 15:32] LABS: ALKALINE PHOSPHATASE 156 U/L (45-117); CREATINE KINASE 143 U/L (39-308)
[2017-01-19 15:38] VITALS: BP 108/70; PULSE 88; RESP 16; O2SAT 96
[2017-01-19 15:39] VITALS: RESP 18; O2SAT 97
--- NOTE | 2017-01-19 16:31 | PD ---
HPI Chief Complaint: Chest Pain Time Seen by Provider: 14:30 Travel History International Travel<30 days: No Contact w/Intl Traveler<30days: No Traveled to known affect area: No History of Present Illness HPI 41-year-old male has epigastric in inferior/retrosternal type chest pain. It started after he ate a breakfast burrito. He describes a sharp quality 6-7/10 at rest and can be more severe at times. There is no radiation. He notes possible paresthesias in the left hand en route to the ER by car. He's had no shortness of breath. He reports a history of cholecystitis with similar preceding symptoms. He's had no nausea or vomiting or fever or cough. He denies a family history of coronary artery disease. He does not smoke. No personal history of diabetes hypertension or hyperlipidemia. PFSH Past Medical History ADD: Yes ADHD: Yes Anxiety: Yes Depression: No Cancer: No Cardiovascular Problems: No Diminished Hearing: No Diverticulitis: Yes Endocrine: No Gastrointestinal Disorders: Yes (DIVERTICULITIS) Genitourinary: No Immune Disorder: No Medical other: Yes (adhd) Musculoskeletal: No Neurologic: No Psychiatric: No Reproductive: No Respiratory: No Immunizations Current: Yes Past Surgical History Abdominal Surgery: Yes (FISTULA REPAIR, BOWEL RECONNECT) AICD: No Arteriovenous Shunt: No Cardiac Surgery: No Cholecystectomy: Yes Ear Surgery: No Endocrine Surgery: No Eye Surgery: No Genitourinary Surgery: No Gynecologic Surgery: No Insulin Pump: No Joint Replacement: No Oral Surgery: Yes (WISDOM TEETH) Pacemaker: No Thoracic Surgery: No Other Surgery: Yes (FISTULA REPAIR, WISDOM TEETH) Social History Alcohol Use: Yes (RARELY) Tobacco Use: No (QUIT 05/04) Substance Use: Yes (MARIJUANA) Allergies-Medications (Allergen,Severity, Reaction): Coded Allergies: No Known Allergies (Unverified , 01/19/17) Reported Meds & Prescriptions Reported Meds & Active Scripts Active [place] (Hydrocodone-Acetaminophen) 5-325 mg Tab 1 Tab PO Q4H PRN Flagyl (Metronidazole) 500 Mg Tab 500 Mg PO TID Levaquin (Levofloxacin) 500 Mg Tab 500 Mg PO DAILY Zofran Odt (Ondansetron Odt) 4 Mg Tab 4 Mg SL Q8HR PRN Tramadol (Tramadol HCl) 50 Mg Tab 50 Mg PO Q6H PRN Reported Xanax (Alprazolam) 0.5 Mg Tab 0.5 Mg PO Q12HR PRN Adderall Xr 24 HR (Amphetamine/Dextroamphetamine) 20 Mg Cap 20 Mg PO DAILY Once daily in the morning. Review of Systems Except as stated in HPI: all other systems reviewed are Neg Physical Exam Narrative GENERAL: 41 yo M, WNWD, NAD SKIN: Warm and dry. HEAD: Atraumatic. Normocephalic. EYES: Pupils equal and round. No scleral icterus. No injection or drainage. ENT: No nasal bleeding or discharge. Mucous membranes pink and moist. NECK: Trachea midline. No JVD. CARDIOVASCULAR: Regular rate and rhythm. RESPIRATORY: No accessory muscle use. Clear to auscultation. Breath sounds equal bilaterally. GASTROINTESTINAL: TTP RUQ. TTP epigastrium. Soft. No rebound. MUSCULOSKELETAL: Extremities without clubbing, cyanosis, or edema. No obvious deformities. NEUROLOGICAL: Awake and alert. No obvious cranial nerve deficits. Motor grossly within normal limits. Five out of 5 muscle strength in the arms and legs. Normal speech. PSYCHIATRIC: Appropriate mood and affect; insight and judgment normal. Data Data Last Documented VS Vital Signs Date Time Temp Pulse Resp B/P Pulse Ox O2 Delivery O2 Flow Rate FiO2 01/19/17 18:11 85 16 145/94 98 Room Air 01/19/17 14:02 97.5 VS reviewed Orders Electrocardiogram (01/19/17 14:04) Complete Blood Count With Diff (01/19/17 14:57) Comprehensive Metabolic Panel (01/19/17 14:57) Lipase (01/19/17 14:57) Iv Access Insert/Monitor (01/19/17 14:57) Ecg Monitoring (01/19/17 14:57) Oximetry (01/19/17 14:57) Sodium Chlor 0.9% 1000 Ml Inj (Ns 1000 M (01/19/17 14:57) Sodium Chloride 0.9% Flush (Ns Flush) (01/19/17 15:00) Electrocardiogram (01/19/17 14:57) Al-Mag Hy-Si 40-40-4 Mg/Ml Liq (Mag-Al P (01/19/17 15:00) Lidocaine 2% Viscous (Xylocaine 2% Visco (01/19/17 15:00) Ckmb (Isoenzyme) Profile (01/19/17 14:57) Prothrombin Time / Inr (Pt) (01/19/17 14:57) Act Partial Throm Time (Ptt) (01/19/17 14:57) Troponin I (01/19/17 14:57) Aspirin (Aspirin) (01/19/17 15:00) Nitroglycerin Sl (Nitrostat Sl) (01/19/17 15:00) CKMB (01/19/17 14:45) CKMB% (01/19/17 14:45) Chest, Single Ap (01/19/17 ) Ct Abd/Pel W Iv Contrast(Rout) (01/19/17 16:05) Iohexol 350 Inj (Omnipaque 350 Inj) (01/19/17 16:50) Acetamin-Hydrocod 325-5 Mg ([place] 5-325 (01/19/17 17:15) Labs Laboratory Tests Test 01/19/17 14:45 White Blood Count 12.7 TH/MM3 Red Blood Count 5.93 MIL/MM3 Hemoglobin 16.7 GM/DL Hematocrit 51.4 % Mean Corpuscular Volume 86.7 FL Mean Corpuscular Hemoglobin 28.1 PG Mean Corpuscular Hemoglobin 32.4 % Concent Red Cell Distribution Width 13.0 % Platelet Count 294 TH/MM3 Mean Platelet Volume 8.3 FL Neutrophils (%) (Auto) 71.5 % Lymphocytes (%) (Auto) 19.9 % Monocytes (%) (Auto) 7.1 % Eosinophils (%) (Auto) 0.9 % Basophils (%) (Auto) 0.6 % Neutrophils # (Auto) 9.1 TH/MM3 Lymphocytes # (Auto) 2.5 TH/MM3 Monocytes # (Auto) 0.9 TH/MM3 Eosinophils # (Auto) 0.1 TH/MM3 Basophils # (Auto) 0.1 TH/MM3 CBC Comment DIFF FINAL Differential Comment Prothrombin Time 9.9 SEC Prothromb Time International 0.9 RATIO Ratio Activated Partial 25.1 SEC Thromboplast Time Sodium Level 144 MEQ/L Potassium Level 4.2 MEQ/L Chloride Level 108 MEQ/L Carbon Dioxide Level 28.6 MEQ/L Anion Gap 7 MEQ/L Blood Urea Nitrogen 18 MG/DL Creatinine 0.97 MG/DL Estimat Glomerular Filtration 86 ML/MIN Rate Random Glucose 101 MG/DL Calcium Level 8.9 MG/DL Total Bilirubin 1.1 MG/DL Aspartate Amino Transf 135 U/L (AST/SGOT) Alanine Aminotransferase 138 U/L (ALT/SGPT) Alkaline Phosphatase 156 U/L Total Creatine Kinase 143 U/L Creatine Kinase MB 2.0 NG/ML Troponin I LESS THAN 0.02 NG/ML Total Protein 7.7 GM/DL Albumin 4.1 GM/DL Lipase 237 U/L MDM Medical Decision Making Medical Screen Exam Complete: Yes Emergency Medical Condition: Yes Medical Record Reviewed: Yes Differential Diagnosis Constipation, Gastritis, Acute Cholecystitis, Biliary Colic, Pancreatitis, EDWARDS , Hepatitis, Bowel Obstruction, Cystitis, Mesenteric Ischemia, AAA, Appendicitis , Renal Stone/Hydronephrosis, GERD, perforated viscous Narrative Course CBC & BMP Diagram 01/19/17 14:45 AST 135 ALT 138 Alk phos 156 Tn < 0.02 Lipase 237 Coags 0.9 EKG: rate 78, sinus, normal axis/intervals, unifocal PVCs CXR: NACPD Last Impressions Abdomen/Pelvis CT 01/19/17 1605 Signed Impressions: Service Date/Time: Thursday, January 19, 2017 16:30 - CONCLUSION: 1. The gallbladder is not identified. Recommend correlation with history for possible prior cholecystectomy. 2. Otherwise negative CT abdomen/pelvis. Tato Arevalo MD Chest X-Ray 01/19/17 0000 Signed Impressions: Service Date/Time: Thursday, January 19, 2017 15:57 - CONCLUSION: The lungs are clear. Tato Arevalo MD Mild transaminitis is considered non-specific. We discussed return precautions at the bedside with special attention given to next 8 hours. The patient is resting comfortably and feels better, is alert and in no distress. The patients results and examination findings were discussed. The repeat examination is unremarkable and benign. The history, exam, diagnostic testing, and current condition do not suggest any significant pathology to warrant further testing, continued ED treatment, admission, or surgical evaluation at this point. The vital signs have been stable. The patient does not have uncontrollable pain, intractable vomiting, or other significant symptoms. The patient's condition is stable and appropriate for discharge. The patient will pursue further outpatient evaluation with a primary care physician or other designated or consulting physician as indicated in the discharge instructions. The patient expressed understanding and was agreeable with this plan. Diagnosis Primary Impression: Elevated liver function tests Referrals: Primary Care Physician 2 days Additional Instructions: You have a choice when it comes to health care, and we are glad that you chose [facility]. Hopefully, we have met your expectations on today's visit. You are welcome to return to [facility] at any time, as we are committed to meeting the health care needs of our community. Med/Other Pt SpecificInfo: No Change to Meds Scripts Hydrocodone-Acetaminophen ([place])5-325 mg Tab1 Tab PO Q4H PRN (PAIN) #20 TAB Ref 0 Prov:Miguel Ángel Cantu MD 01/19/17 Disposition: 01 DISCHARGE HOME Condition: Stable Miguel Ángel Cantu MD Jan 19, 2017 16:31
--- NOTE | 2017-01-19 16:36 | RADHPO ---
EXAM DATE/TIME: 01/19/2017 15:57 [facility] COMPARISON: CHEST SINGLE AP, September 28, 2016, 7:44. INDICATIONS : Mid chest pain MEDICAL HISTORY : None. SURGICAL HISTORY : None. ENCOUNTER: Initial ACUITY: 1 day PAIN SCORE: 8/10 LOCATION: Bilateral middle chest FINDINGS: A single view of the chest demonstrates the lungs to be symmetrically aerated without evidence of mas s, infiltrate or effusion. The cardiomediastinal contours are unremarkable. Osseous structures are intact. CONCLUSION: The lungs are clear. Tato Arevalo MD on January 19, 2017 at 16:34 Board Certified Radiologist. This report was verified electronically.
[2017-01-19] MEDS ORDERED: IOHEXOL 350 MG/ML 10 ML VIAL (for RAD DIAG) IV ONE (16:50)
[2017-01-19 16:57] VITALS: BP 118/80; PULSE 75; RESP 16; O2SAT 100
[2017-01-19] MEDS ORDERED: ACETAMINOPHEN/HYDROcodone 325 MG/5 MG TAB PO ONE (17:15)
--- NOTE | 2017-01-19 17:56 | RADHPO ---
EXAM DATE/TIME: 01/19/2017 16:30 [place] Corrected on: February 01, 2017; added LOCATION: Bilateral abdomen [facility] COMPARISON: US ABDOMEN - GALLBLADDER, September 28, 2016, 11:19. US ABDOMEN - GALLBLADDER, October 17, 2016, 9:32. CT ABDOMEN & PELVIS W CONTRAST, September 28, 2016, 9:22. INDICATIONS : Chest pain and right upper quadrant abdominal pain. IV CONTRAST: 96 cc Omnipaque 350 (iohexol) IV ORAL CONTRAST: No oral contrast ingested. RADIATION DOSE: 22.11 CTDIvol (mGy) MEDICAL HISTORY : Diverticulitis. SURGICAL HISTORY : Fistula and bowel resection. ENCOUNTER: Initial ACUITY: 1 day PAIN SCALE: 7/10 LOCATION: Bilateral abdomen TECHNIQUE: Volumetric scanning of the abdomen and pelvis was performed. Using automated exposure control and ad justment of the mA and/or kV according to patient size, radiation dose was kept as low as reasonably achievable to obtain optimal diagnostic quality images. FINDINGS: LOWER LUNGS: The visualized lower lungs are clear. LIVER: Homogeneous density without lesion. There is no dilation of the biliary tree. The gallbladder is no t identified; no metallic hemoclips in the rae. SPLEEN: Normal size without lesion. PANCREAS: Within normal limits. KIDNEYS: Normal in size and shape. There is no mass, stone or hydronephrosis. ADRENAL GLANDS: Within normal limits. VASCULAR: There is no aortic aneurysm. BOWEL/MESENTERY: No dilated loops of small or large bowel. The anastomosis suture in the rectosigmoid region. No barbara dence of free fluid. The appendix is identified in the right lower quadrant has a normal appearance. ABDOMINAL WALL: Within normal limits. RETROPERITONEUM: There is no lymphadenopathy. BLADDER: No wall thickening or mass. REPRODUCTIVE: Within normal limits. INGUINAL: There is no lymphadenopathy or hernia. MUSCULOSKELETAL: Within normal limits for patient age. CONCLUSION: 1. The gallbladder is not identified. Recommend correlation with history for possible prior cholecys tectomy. 2. Otherwise negative CT abdomen/pelvis. Tato Arevalo MD on January 19, 2017 at 17:50 Board Certified Radiologist. This report was verified electronically Board Certified Radiologist. This report was verified electronically.
[2017-01-19 18:11] VITALS: BP 145/94; PULSE 85; RESP 16; O2SAT 98
[2017-01-19] MEDS ORDERED: NORC5TAB PO (18:26)
--- NOTE | 2017-01-20 14:11 | EKG ---
Date Performed: 01/19/2017 Time Performed: 14:04:44 PTAGE: 41 years EKG: Sinus rhythm with PVC(s) Compared to previous tracing, the PVCs are new. Borderline ECG PREVIOUS TRACING : 09/28/2016 07.42 DOCTOR: Lyndon Green Interpretating Date/Time 01/20/2017 14:10:02
== END 2017-01-19 18:31 | disposition home or self-care (01) ==
LOC: PHED 14:02
DX: R79.89 Other specified abnormal findings of blood chemistry (principal); Z87.891 Personal history of nicotine dependence; I49.3 Ventricular premature depolarization
CPT/HCPCS: 71010; 74177; 80053; 82550; 82552; 83690; 84484; 85025; 85610; 85730; 93005; 96360; 99285; J7030; Q9967